=== PATIENT | male | born 1960 | race Caucasian/White ===

== ENCOUNTER → 2018-10-02 09:32 | Outpatient (CLI) | payer MEDICAID, SELFPAY ==
[2018-10-02 10:29] LABS: Influenza A and B by PCR Rapid Negative (Negative)
== END ==
PROVIDERS: PCP Family Medicine; Visit Provider Physician Assistant
DX: R05 Cough (principal)
CPT/HCPCS: 87400

== ENCOUNTER → 2018-12-04 10:06 | Outpatient (CLI) | payer MEDICAID, SELFPAY ==
[2018-12-04 10:23] LABS: Bacteria Urine None Seen; RBC Urine None Seen (0-5/HPF); WBC Urine None Seen (0-5/HPF)
[2018-12-04 10:46] LABS: Appearance Urine UA CLEAR; Bilirubin Urine UA NEGATIVE (NEGATIVE); Color Urine UA YELLOW; Glucose Urine UA NEGATIVE (Negative); Ketones Urine UA NEGATIVE (NEGATIVE); Leukocyte Esterase Urine UA NEGATIVE (NEGATIVE); Nitrite Urine UA NEGATIVE (Negative); Occult Blood Urine UA NEGATIVE (Negative); Protein Urine UA NEGATIVE (Negative); Urobilinogen Urine UA 0.2 E.U./dL (0.2); pH Urine UA 6.5 (4.5-8.0)
[2018-12-04 10:58] LABS: Urine Comments Microscopic Normal
[2018-12-04 10:59] LABS: Alanine Aminotransferase 43 IU/L (21-72); Albumin 4.9 g/dL (3.5-5.0); Albumin Globulin Ratio 1.8 (1.0-2.8); Alkaline Phosphatase 95 U/L (38-126); Aspartate Aminotransferase 31 IU/L (17-59); BUN Creatinine Ratio 18.8 (6-22); Bilirubin Total 0.7 mg/dL (0.2-1.3); Blood Urea Nitrogen 15 mg/dL (9-20); Calcium 9.6 mg/dL (8.4-10.2); Carbon Dioxide 23 mmol/L (22-32); Chloride 105 mmol/L (98-107); Cholesterol 151 mg/dL (140-199); Culture Indicated Urine Cult Not Indicated; Estimated Glomerular Filt Rate > 60.0 mL/min (>60); Globulin 2.8 g/dL (1.7-4.1); Glucose 104 mg/dL (70-100); HDL Cholesterol 50 mg/dL (40-60); HEMOLYSIS < 15 (0-50); LDL Cholesterol Calculated 87 mg/dL (<100); Potassium 4.1 mmol/L (3.4-5.1); Sodium 138 mmol/L (137-145); Total Protein 7.7 g/dL (6.3-8.2); Triglycerides 69 mg/dL (35-150)
[2018-12-04 11:26] LABS: Prostate Specific Antigen 0.982 ng/mL (0.10-4.00)
[2018-12-04 12:18] LABS: Thyroid Stimulating Hormone 0.71 uIU/mL (0.47-4.68)
== END ==
PROVIDERS: PCP Family Medicine; Visit Provider Family Medicine
DX: Z51.81 Encounter for therapeutic drug level monitoring (principal); Z00.00 Encounter for general adult medical examination without abnormal findings
CPT/HCPCS: 36415; 80053; 80061; 81001; 84153; 84443

== ENCOUNTER → 2019-09-27 09:09 | Outpatient (CLI) | payer MEDICAID, SELFPAY ==
--- NOTE | 2019-09-27 09:10 | DI.RAD.S_ITS ---
PROCEDURE: XR LUMBAR SPINE 2-3V INDICATIONS: Back pain TECHNIQUE: 3 views of the lumbar spine were acquired. COMPARISON: None. FINDINGS: Bones: 5 [id number] vertebrae are present. Mild levoscoliosis centered at the L3 level. Trace multilevel retrolisthesis. Mild multilevel disc degeneration, most notably at the L5-S1 level. Moderate L4-L5 and L5-S1 facet joint arthropathy. No vertebral body compression fractures. No suspicious bony lesions. Soft tissues: Overlying bowel gas pattern is normal. No suspicious soft tissue calcifications. IMPRESSION: Multilevel spondylosis. Dictated by: Raj MENDOZA Interpreted: Peyton Trujillo MD on 09/27/2019 at 9:22 Approved by: Peyton Trujillo M.D. on 09/27/2019 at 16:47
== END ==
PROVIDERS: PCP Family Medicine; Referring Provider Family Medicine; Visit Provider Family Medicine
DX: M54.5 Low back pain (principal); M47.816 Spondylosis without myelopathy or radiculopathy, lumbar region; M47.817 Spondylosis without myelopathy or radiculopathy, lumbosacral region; G89.29 Other chronic pain
CPT/HCPCS: 72100

== ENCOUNTER → 2020-05-21 12:37 | Outpatient (CLI) | payer MEDICAID, SELFPAY ==
[2020-05-21 14:02] LABS: Add Manual Diff / Slide Review NO; Basophils Absolute Auto 0 /uL (0-100); Basophils Percent Auto 0.7 % (0-2); Eosinophils Absolute Auto 100 /uL (0-450); Eosinophils Percent Auto 2.2 % (2-4); Hematocrit 44.1 % (41-53); Hemoglobin 14.9 g/dL (13.5-17.5); Lymphocytes Absolute Auto 1400 /uL (1100-4500); Lymphocytes Percent Auto 25.7 % (25-40); Mean Corpuscular HGB Conc 33.8 % (30-36); Mean Corpuscular Hemoglobin 29.8 PG (26-34); Mean Corpuscular Volume 88.2 fL (80-100); Monocytes Absolute Auto 400 /uL (0-900); Monocytes Percent Auto 7.2 % (3-14); Neutrophils Absolute Auto 3500 /uL (1500-7000); Neutrophils Percent Auto 64.2 % (50-75); Platelet Count 179 X10^3/uL (150-400); White Blood Cell Count 5.4 X10^3/uL (4.5-11.0)
[2020-05-21 14:55] LABS: Alanine Aminotransferase 36 IU/L (<50); Albumin 4.2 g/dL (3.5-5.0); Albumin Globulin Ratio 1.4 (1.0-2.8); Alkaline Phosphatase 73 U/L (38-126); Aspartate Aminotransferase 32 IU/L (17-59); BUN Creatinine Ratio 16.5 (6-22); Bilirubin Total 0.4 mg/dL (0.2-1.3); Blood Urea Nitrogen 14 mg/dL (9-20); Carbon Dioxide 28 mmol/L (22-32); Chloride 108 mmol/L (98-107); Cholesterol 161 mg/dL (140-199); Estimated Glomerular Filt Rate > 60.0 mL/min (>60); Glucose 90 mg/dL (70-100); HDL Cholesterol 43 mg/dL (40-60); HEMOLYSIS < 15 (0-50); LDL Cholesterol Calculated 90 mg/dL (<100); Potassium 3.9 mmol/L (3.4-5.1); Sodium 140 mmol/L (137-145); Total Protein 7.2 g/dL (6.3-8.2); Triglycerides 139 mg/dL (35-150)
[2020-05-21 15:00] LABS: Free T4, Direct Thyroxine 0.85 ng/dL (0.78-2.19)
[2020-05-21 15:14] LABS: Thyroid Stimulating Hormone 1.44 uIU/mL (0.47-4.68)
[2020-05-21 15:18] LABS: Prostate Specific Antigen 1.19 ng/mL (0.10-4.00)
== END ==
PROVIDERS: Family Provider Family Medicine; PCP Family Medicine; Referring Provider Family Medicine; Visit Provider Family Medicine
DX: I10 Essential (primary) hypertension (principal)
CPT/HCPCS: 36415; 80053; 80061; 84153; 84439; 84443; 85025

== ENCOUNTER 2020-08-05 15:15 | Outpatient (RCR) | payer MEDICAID, SELFPAY ==
--- NOTE | 2020-06-25 09:05 | PT.OIE ---
Current Diagnoses Other chronic pain (06/24/20) Chronic pain syndrome (06/24/20) Pain in right knee (06/24/20) Low back pain (06/24/20) Weakness (06/24/20) Past Medical History (Last Updated 05/15/20 @ 21:17 by Darnell Hennessy DO) Ankle pain (1993) Cervical spine disease (~1999) Chronic back pain (1993) Foot pain (1993) Fractures (~2004) Hearing loss (~2000) Hemorrhoid (~1969) Hypertension Migraines (~1999) Neck pain (Unknown) Tinnitus (~2000) Vision disorder Well adult Past Surgical History (Last Reviewed 01/10/20 @ 07:06 by JAKE Puente) History of surgery on arm (12/2015) Status post appendectomy Status post discectomy Status post discectomy Visit Care Team Role Provider Type Darnell Hennessy DO Attending Provider Physician Family Provider Primary Care Provider Referring Provider Specialty: Family Practice Address: [address] [place] [address] Email: [email or web address] Physical Therapy Initial Evaluation PT-OP-A Visit Information Start: 06/18/20 08:05 Freq: Status: Active Protocol: Document 06/24/20 10:33 SAK (Rec: 06/24/20 11:08 [facility] [id number]) Out-Patient Physical Therapy Visit Information Visit Information Visit Type Initial Evaluation Visit Start Time 10:34 PT-OP-B Current Condition Start: 06/18/20 08:05 Freq: Status: Active Protocol: Document 06/24/20 10:33 SAK (Rec: 06/24/20 11:08 [facility] [id number]) Current Condition History of Current Condition Onset Date 10 yrs ago Current Complaints back pain History of Current Condition Back pain worsening over time since 1994. Reports aquatic exercise has been the best for him in past, seen by this PT. Due to pandemic no aquatic therapy at is time, but pool is open. Receptive to land- based PT as well. Has to cancel PT appointments until after the first of the week. Numbness in thighs with prolonged sitting no falls. Taking Hydrocodone 5x/day, goal is to decrease pain sufficient to be able to wean off Hydrocodone. Reports in the am, sometimes can't walk or move due to CRPS . Joints feel dehydrated. Used to walk 5-7 miles per day . Prior Treatments and Tests crushed ankles '95 after falling off room. L4 L5 S1 laminectomy and discectomy Pain clinic [id number]. cervical discectomy and fusion PT-OP-C Subjective Start: 06/18/20 08:05 Freq: Status: Active Protocol: Document 06/24/20 10:33 SAK (Rec: 06/25/20 08:52 SAK [id number]) OP-PT Pain Assessment Pain Assessment Grid Paper Pain Assessment Grid Completed Yes Location lumbar spine Intensity 6 Description Aching,Burning,Chronic, Pressure Frequency Frequent Pain Aggravating Factors Position,Activity,Standing, Sitting,Walking Home Pain Medication Use Pain Medications Used Yes Home Pain Medication Frequency 5x/day PT-OP-G Mobility & Gait Start: 06/18/20 08:05 Freq: Status: Active Protocol: Document 06/24/20 10:33 SAK (Rec: 06/25/20 08:52 [facility] [id number]) OP Gait Assessment Gait Gait Assistance Required: Independent Gait Deviations General Gait Pattern Antalgic,Decreased Feet Clearance Factors Limiting Gait Function Factors Limiting Gait Function Pain PT-OP-J Posture/Palpation/Skin Start: 06/18/20 08:05 Freq: Status: Active Protocol: Document 06/24/20 10:33 SAK (Rec: 06/25/20 08:52 [facility] [id number]) Posture Evaluation Position Standing Head/C-Spine Posture Forward Head L-Spine Posture Increased Lordosis Shoulder Posture (L) Rounded,(R) Rounded Scapula Posture (L) Protracted,(R) Protracted Hip Posture (L) Externally Rotated,(R) Externally Rotated Ankle/Foot Posture (L) Forefoot Eversion,(R) Forefoot Eversion PT-OP-K Range of Motion Start: 06/18/20 08:05 Freq: Status: Active Protocol: Document 06/24/20 10:33 SAK (Rec: 06/25/20 08:52 [facility] [id number]) Lumbar Spine Range of Motion Lumbar Spine Active ROM Limitations Pain Comments moderate decrease in all motions Hip Goniometric Range of Motion Hip lily Hip ROM WFL No Testing Position Supine Flexion w/Knee Flexed 105 Straight Leg Raise 80 Extension 0 Internal Rotation 15 External Rotation 45 PT-OP-L Special Tests Start: 06/18/20 08:05 Freq: Status: Active Protocol: Document 06/24/20 10:33 SAK (Rec: 06/25/20 08:52 SAK [id number]) Special Tests Lumbar Spine Special Tests Straight Leg Raise Test Results negative Manual Traction Test Results positive for decrease pain PT-OP-M Strength Start: 06/18/20 08:05 Freq: Status: Active Protocol: Document 06/24/20 10:33 SAK (Rec: 06/25/20 08:52 SAK [id number]) Trunk Strength Trunk Manual Muscle Testing Flexion 3+ Fair+ Extension 3+ Fair+ Core Stabilization poor Comments painful Knee Strength Knee Manual Muscle Testing lily Flexion (S2) 4+ Good+ Extension (L3) 4+ Good+ Ankle/Foot Strength Ankle and Foot Manual Muscle Testing lily Dorsiflexion (L4) 4 Good Plantarflexion (S1) 4 Good PT-OP-Q Treatments Start: 06/18/20 08:05 Freq: Status: Active Protocol: Document 06/24/20 10:33 SAK (Rec: 06/25/20 08:52 [facility] [id number]) Self-Care/Home Management Treatment Education Patient Education Home Exercise Program PT-OP-R Modalities Start: 06/18/20 08:05 Freq: Status: Active Protocol: Document 06/24/20 10:33 SAK (Rec: 06/25/20 08:52 [facility] [id number]) Hot Pack/Cold Pack Treatment Hot Pack Location lumbar spine Patient Position Hooklying Patient Tolerance Good PT-OP-T Assessment and Plan Start: 06/18/20 08:05 Freq: Status: Active Protocol: Document 06/24/20 10:33 SAK (Rec: 06/24/20 15:41 [facility] [id number]) Physical Therapy Assessment Rehab Potential Rehabilitation Potential Good Evaluation Complexity Number of Personal Factors/Comorbidities 1-2 Number of Body Systems Impaired 3 Clinical Presentation at Evaluation Evolving Impairments Impairments Activity Tolerance,Pain, Strength Other Concerns Barriers to Rehabilitation chronicity of pain Goals Four Impairment weakness lily LE's and core Prison Goal (LTG) Patient will be independent with HEP and aquatic exercise program, and demonstrate at least 4+/5 muscle strength bilateral LE's and core LTG Duration 09/22/20 Two Impairment pain lumbar spine with radicular symptoms 6/10 on pain scale Desktop Specialist Goal (LTG) Patient able to tolerate usual activities of daily living with pain no greeater than 2/ 10 LTG Duration 09/22/20 One Impairment activity intolerance: sitting 5 min, standing/walking 5 min Prison Goal (LTG) Patient will be able to sit for 1 hour and stand/walk for 30 min without an increase in pain LTG Duration 09/22/20 Assessment Summary Assessment Patient presents with 10 year history of worsening LBP limiting his activity tolerance and function on a daily basis. He has a history of bilateral ankle fractures and his LBP came on soon after . History of laminectomy and discectomy L4-S1. He is hoping to decrease his pain, improve his activity tolerance , and be able to wean off Hydrocodone. He has benefited from aquatic exercise in the past, unfortunately our Aquatic PT program is on hold at this time due to Covid 19; the community pool is open but the current plan is aquatic PT won't restart until Phase 3 of [facility] re- opening. Patient's symptoms are decreased with manual traction and I feel the buoyancy support of the water would be very beneficial for Cale to allow for improved mobility and ability to strengthen with less pain and stress to his spine. In the short term feel we can do land -based PT with emphasis on core strengthening, as well as use of manual and possible mechanical traction, manual techniques, and modalities for pain management. As soon as possible would like to see him utilize aquatic exercise for his rehab. Due to insurance issues (currently self-pay) patient may not be able to attend physical therapy appointments. He will be gone visiting his mother until after the first of the year. Physical Therapy Plan Frequency and Duration Frequency of Treatment 2x/Week Duration of Treatment 12 wks Plan of Care Start Date 06/24/20 Plan of Care End Date 09/22/20 Therapeutic Interventions Therapeutic Interventions Aquatic Therapy Next Visit Focus/Plan Next Note Type Treatment Note Next Visit Plan Review HEP, progress ther ex as indicated with emphasis on core strengthening. Manual traction, modalities including moist heat and IFES to decrease pain. Instruct in recommended aquatic exercises if patient able to go to pool on own. Aquatic therapy once [facility] moves to Phase 3 of reopening.
--- NOTE | 2020-06-25 09:05 | PT.OPPOC ---
Physical, Occupational & Speech Therapy At [facility] Current Diagnoses Other chronic pain (06/24/20) Chronic pain syndrome (06/24/20) Pain in right knee (06/24/20) Low back pain (06/24/20) Weakness (06/24/20) Visit Care Team Role Provider Type Darnell Hennessy DO Attending Provider Physician Family Provider Primary Care Provider Referring Provider Specialty: Family Practice Address: [address] [place] [address], [place] Email: [email or web address] Plan Of Care PT-OP-T Assessment and Plan Start: 06/18/20 08:05 Freq: Status: Active Protocol: Document 06/24/20 10:33 [facility] (Rec: 06/24/20 15:41 [facility] [id number]) Physical Therapy Assessment Rehab Potential Rehabilitation Potential Good Evaluation Complexity Number of Personal Factors/Comorbidities 1-2 Number of Body Systems Impaired 3 Clinical Presentation at Evaluation Evolving Impairments Impairments Activity Tolerance,Pain, Strength Other Concerns Barriers to Rehabilitation chronicity of pain Goals Four Impairment weakness lily LE's and core Jail Goal (LTG) Patient will be independent with HEP and aquatic exercise program, and demonstrate at least 4+/5 muscle strength bilateral LE's and core LTG Duration 09/22/20 Two Impairment pain lumbar spine with radicular symptoms 6/10 on pain scale Jail Goal (LTG) Patient able to tolerate usual activities of daily living with pain no greeater than 2/ 10 LTG Duration 09/22/20 One Impairment activity intolerance: sitting 5 min, standing/walking 5 min Harbor Department Manager Goal (LTG) Patient will be able to sit for 1 hour and stand/walk for 30 min without an increase in pain LTG Duration 09/22/20 Assessment Summary Assessment Patient presents with 10 year history of worsening LBP limiting his activity tolerance and function on a daily basis. He has a history of bilateral ankle fractures and his LBP came on soon after . History of laminectomy and discectomy L4-S1. He is hoping to decrease his pain, improve his activity tolerance , and be able to wean off Hydrocodone. He has benefited from aquatic exercise in the past, unfortunately our Aquatic PT program is on hold at this time due to Covid 19; the community pool is open but the current plan is aquatic PT won't restart until Phase 3 of [facility] re- opening. Patient's symptoms are decreased with manual traction and I feel the buoyancy support of the water would be very beneficial for Cale to allow for improved mobility and ability to strengthen with less pain and stress to his spine. In the short term feel we can do land -based PT with emphasis on core strengthening, as well as use of manual and possible mechanical traction, manual techniques, and modalities for pain management. As soon as possible would like to see him utilize aquatic exercise for his rehab. Due to insurance issues (currently self-pay) patient may not be able to attend physical therapy appointments. He will be gone visiting his mother until after the first of the year. Physical Therapy Plan Frequency and Duration Frequency of Treatment 2x/Week Duration of Treatment 12 wks Plan of Care Start Date 06/24/20 Plan of Care End Date 09/22/20 Therapeutic Interventions Therapeutic Interventions Aquatic Therapy Next Visit Focus/Plan Next Note Type Treatment Note Next Visit Plan Review HEP, progress ther ex as indicated with emphasis on core strengthening. Manual traction, modalities including moist heat and IFES to decrease pain. Instruct in recommended aquatic exercises if patient able to go to pool on own. Aquatic therapy once [facility] moves to Phase 3 of reopening. Plan of Care Dates Plan of Care Start Date 06/24/20 Plan of Care End Date 09/22/20 Electronically Signed by: Ilene Mckeon, PT 06/25/20 0905 Please Sign and Return: I have reviewed this Plan of Care and certify that the skilled therapy services above are required to meet the patient?s needs. Physician Signature Date Printed Name and Credentials Clinical Instructor Signature Printed Name and Credentials
--- NOTE | 2020-07-29 14:46 | PT-OP ANOTE ---
cancelled due to cold symptoms
--- NOTE | 2020-08-05 16:14 | PT.OTN ---
Current Diagnoses Other chronic pain (08/05/20) Chronic pain syndrome (08/05/20) Pain in right knee (08/05/20) Low back pain (08/05/20) Weakness (08/05/20) Physical Therapy Treatment Note PT-OP-A Visit Information Start: 06/18/20 08:05 Freq: Status: Active Protocol: Document 08/05/20 15:17 SAK (Rec: 08/05/20 16:13 SAK [id number]) Out-Patient Physical Therapy Visit Information Visit Information Visit Type Treatment Note Visit Note patient 8 min late Visit Start Time 15:23 Visit Stop Time 16:05 Total Visit Minutes 42 Visit Number 2 Evaluation Information Evaluation Date 06/24/20 PT-OP-B Current Condition Start: 06/18/20 08:05 Freq: Status: Active Protocol: Document 06/24/20 10:33 SAK (Rec: 06/24/20 11:08 SAK [id number]) Current Condition History of Current Condition Onset Date 10 yrs ago Current Complaints back pain History of Current Condition Back pain worsening over time since 1994. Reports aquatic exercise has been the best for him in past, seen by this PT. Due to pandemic no aquatic therapy at is time, but pool is open. Receptive to land- based PT as well. Has to cancel PT appointments until after the first of the year. Numbness in thighs with prolonged sitting no falls. Taking Hydrocodone 5x/day, goal is to decrease pain sufficient to be able to wean off Hydrocodone. Reports in the am, sometimes can't walk or move due to CRPS . Joints feel dehydrated. Used to walk 5-7 miles per day . Prior Treatments and Tests crushed ankles '95 after falling off roof. L4 L5 S1 laminectomy and discectomy Pain clinic [phone]. cervical discectomy and fusion PT-OP-C Subjective Start: 06/18/20 08:05 Freq: Status: Active Protocol: Document 08/05/20 15:17 SAK (Rec: 08/05/20 16:13 SAK [id number]) OP-PT Subjective Patient Comments Patient Comments Reports has started doing aquatic exercise and swimming, pain decreased. Has also started increase in walking to several miles per day carrying 12-15 pounds. States his core feels weak. Also meditating and praying. PT-OP-G Mobility & Gait Start: 06/18/20 08:05 Freq: Status: Active Protocol: Document 06/24/20 10:33 SAK (Rec: 06/25/20 08:52 [facility] [id number]) OP Gait Assessment Gait Gait Assistance Required: Independent Gait Deviations General Gait Pattern Antalgic,Decreased Feet Clearance Factors Limiting Gait Function Factors Limiting Gait Function Pain PT-OP-J Posture/Palpation/Skin Start: 06/18/20 08:05 Freq: Status: Active Protocol: Document 06/24/20 10:33 SAK (Rec: 06/25/20 08:52 [facility] [id number]) Posture Evaluation Position Standing Head/C-Spine Posture Forward Head L-Spine Posture Increased Lordosis Shoulder Posture (L) Rounded,(R) Rounded Scapula Posture (L) Protracted,(R) Protracted Hip Posture (L) Externally Rotated,(R) Externally Rotated Ankle/Foot Posture (L) Forefoot Eversion,(R) Forefoot Eversion PT-OP-K Range of Motion Start: 06/18/20 08:05 Freq: Status: Active Protocol: Document 06/24/20 10:33 SAK (Rec: 06/25/20 08:52 [facility] [id number]) Lumbar Spine Range of Motion Lumbar Spine Active ROM Limitations Pain Comments moderate decrease in all motions Hip Goniometric Range of Motion Hip lily Hip ROM WFL No Testing Position Supine Flexion w/Knee Flexed 105 Straight Leg Raise 80 Extension 0 Internal Rotation 15 External Rotation 45 PT-OP-L Special Tests Start: 06/18/20 08:05 Freq: Status: Active Protocol: Document 06/24/20 10:33 SAK (Rec: 06/25/20 08:52 [facility] [id number]) Special Tests Lumbar Spine Special Tests Straight Leg Raise Test Results negative Manual Traction Test Results positive for decrease pain PT-OP-M Strength Start: 06/18/20 08:05 Freq: Status: Active Protocol: Document 06/24/20 10:33 SAK (Rec: 06/25/20 08:52 SAK [id number]) Trunk Strength Trunk Manual Muscle Testing Flexion 3+ Fair+ Extension 3+ Fair+ Core Stabilization poor Comments painful Knee Strength Knee Manual Muscle Testing lily Flexion (S2) 4+ Good+ Extension (L3) 4+ Good+ Ankle/Foot Strength Ankle and Foot Manual Muscle Testing lily Dorsiflexion (L4) 4 Good Plantarflexion (S1) 4 Good PT-OP-Q Treatments Start: 06/18/20 08:05 Freq: Status: Active Protocol: Document 08/05/20 15:17 [facility] (Rec: 08/05/20 16:13 [facility] [id number]) Cardio Equipment Recumbent Stepper (Sci-Fit) Duration (Minutes) 10 Resistance 2.0 Seat Position 11 Other cues for LE alignment Therapeutic Exercises Supine Exercises postural isometric Reps/Minutes 10x Comments knees bent, thin pillow under head SKTC Side bilateral Reps/Minutes 30 x 2 ball squeeze Equipment Used green ball Reps/Minutes 10x TrA Reps/Minutes 10x segmental bridge Reps/Minutes 10x Standing Exercises wall posture Reps/Minutes 5x Comments c/o right knee and hip discomfort Manual Therapy Treatment Manual Traction Lumbar Body Position Hooklying Reps/Duration 10 min Comments intermittant 2 min holds, 10 sec release Self-Care/Home Management Treatment Education Patient Education Home Exercise Program Other Education issued new copy of HEP PT-OP-R Modalities Start: 06/18/20 08:05 Freq: Status: Active Protocol: Document 06/24/20 10:33 [facility] (Rec: 06/25/20 08:52 [facility] [id number]) Hot Pack/Cold Pack Treatment Hot Pack Location lumbar spine Patient Position Hooklying Patient Tolerance Good PT-OP-T Assessment and Plan Start: 06/18/20 08:05 Freq: Status: Active Protocol: Document 08/05/20 15:17 [facility] (Rec: 08/05/20 16:13 [facility] [id number]) Physical Therapy Assessment Impairments Impairments Activity Tolerance,Pain, Strength Other Concerns Barriers to Rehabilitation chronicity of pain Goals Four Impairment weakness lily LE's and core Inspector Electromechanical Goal (LTG) Patient will be independent with HEP and aquatic exercise program, and demonstrate at least 4+/5 muscle strength bilateral LE's and core LTG Duration 09/22/20 Two Impairment pain lumbar spine with radicular symptoms 6/10 on pain scale Inspector Electromechanical Goal (LTG) Patient able to tolerate usual activities of daily living with pain no greeater than 2/ 10 LTG Duration 09/22/20 One Impairment activity intolerance: sitting 5 min, standing/walking 5 min Shelter Goal (LTG) Patient will be able to sit for 1 hour and stand/walk for 30 min without an increase in pain LTG Duration 09/22/20 Progress Towards Goals Progress Towards Goals Progressing Toward Goals Assessment Summary Assessment Reports decreasing pain since starting aquatic exercise and swimming, increasing tolerance for walking. Reported excellent relief of pressure and pain with manual traction. Patient refused ice or heat at end of treatment. Physical Therapy Plan Frequency and Duration Frequency of Treatment 2x/Week Duration of Treatment 12 wks Plan of Care Start Date 06/24/20 Plan of Care End Date 09/22/20 Therapeutic Interventions Therapeutic Interventions Aquatic Therapy,Home Exercise Program,Joint Mobilizations, Manual Therapy,Neuromuscular Re-education,Patient/Caregiver Education,Self-Care/Home Management,Soft Tissue Mobilization,Taping, Therapeutic Activities, Therapeutic Exercises Next Visit Focus/Plan Next Note Type Treatment Note Next Visit Plan Continue core strengthening, flexibility, trial mechanical traction, modalities PRN.
--- NOTE | 2020-08-07 15:43 | PT-OP ANOTE ---
CANCELLED DUE TO REPORTED GROIN INJURY
--- NOTE | 2020-08-18 16:36 | PT-OP ANOTE ---
Hold PT until patient returns from vacation in September
--- NOTE | 2020-11-10 10:50 | PT.OPDS ---
Current Diagnoses Other chronic pain (08/05/20) Chronic pain syndrome (08/05/20) Pain in right knee (08/05/20) Low back pain (08/05/20) Weakness (08/05/20) Visit Care Team Role Provider Type Darnell Hennessy DO Attending Provider Physician Family Provider Primary Care Provider Referring Provider Specialty: [facility] Practice Address: [address] [place] [address], [facility] Email: [email or web address] Visit Number Visit Number 2 Discharge Summary PT-OP-B Current Condition Start: 06/18/20 08:05 Freq: Status: Active Protocol: Document 06/24/20 10:33 SAK (Rec: 06/24/20 11:08 SAK [id number]) Current Condition History of Current Condition Onset Date 10 yrs ago Current Complaints back pain History of Current Condition Back pain worsening over time since 1994. Reports aquatic exercise has been the best for him in past, seen by this PT. Due to pandemic no aquatic therapy at is time, but pool is open. Receptive to land- based PT as well. Has to cancel PT appointments until after the first of the year. Numbness in thighs with prolonged sitting no falls. Taking Hydrocodone 5x/day, goal is to decrease pain sufficient to be able to wean off Hydrocodone. Reports in the am, sometimes can't walk or move due to CRPS . Joints feel dehydrated. Used to walk 5-7 miles per day . Prior Treatments and Tests crushed ankles '95 after falling off roof. L4 L5 S1 laminectomy and discectomy Pain clinic [id number]. cervical discectomy and fusion PT-OP-C Subjective Start: 06/18/20 08:05 Freq: Status: Active Protocol: Document 08/05/20 15:17 SAK (Rec: 08/05/20 16:13 SAK [id number]) OP-PT Subjective Patient Comments Patient Comments Reports has started doing aquatic exercise and swimming, pain decreased. Has also started increase in walking to several miles per day carrying 12-15 pounds. States his core feels weak. Also meditating and praying. PT-OP-G Mobility & Gait Start: 06/18/20 08:05 Freq: Status: Active Protocol: Document 06/24/20 10:33 SAK (Rec: 06/25/20 08:52 [facility] [id number]) OP Gait Assessment Gait Gait Assistance Required: Independent Gait Deviations General Gait Pattern Antalgic,Decreased Feet Clearance Factors Limiting Gait Function Factors Limiting Gait Function Pain PT-OP-J Posture/Palpation/Skin Start: 06/18/20 08:05 Freq: Status: Active Protocol: Document 06/24/20 10:33 SAK (Rec: 06/25/20 08:52 [facility] [id number]) Posture Evaluation Position Standing Head/C-Spine Posture Forward Head L-Spine Posture Increased Lordosis Shoulder Posture (L) Rounded,(R) Rounded Scapula Posture (L) Protracted,(R) Protracted Hip Posture (L) Externally Rotated,(R) Externally Rotated Ankle/Foot Posture (L) Forefoot Eversion,(R) Forefoot Eversion PT-OP-K Range of Motion Start: 06/18/20 08:05 Freq: Status: Active Protocol: Document 06/24/20 10:33 SAK (Rec: 06/25/20 08:52 [facility] [id number]) Lumbar Spine Range of Motion Lumbar Spine Active ROM Limitations Pain Comments moderate decrease in all motions Hip Goniometric Range of Motion Hip lily Hip ROM WFL No Testing Position Supine Flexion w/Knee Flexed 105 Straight Leg Raise 80 Extension 0 Internal Rotation 15 External Rotation 45 PT-OP-L Special Tests Start: 06/18/20 08:05 Freq: Status: Active Protocol: Document 06/24/20 10:33 SAK (Rec: 06/25/20 08:52 [facility] [id number]) Special Tests Lumbar Spine Special Tests Straight Leg Raise Test Results negative Manual Traction Test Results positive for decrease pain PT-OP-M Strength Start: 06/18/20 08:05 Freq: Status: Active Protocol: Document 06/24/20 10:33 SAK (Rec: 06/25/20 08:52 [facility] [id number]) Trunk Strength Trunk Manual Muscle Testing Flexion 3+ Fair+ Extension 3+ Fair+ Core Stabilization poor Comments painful Knee Strength Knee Manual Muscle Testing lily Flexion (S2) 4+ Good+ Extension (L3) 4+ Good+ Ankle/Foot Strength Ankle and Foot Manual Muscle Testing lily Dorsiflexion (L4) 4 Good Plantarflexion (S1) 4 Good PT-OP-T Assessment and Plan Start: 06/18/20 08:05 Freq: Status: Active Protocol: Document 11/10/20 10:49 IVAN (Rec: 11/10/20 10:50 IVAN [id number]) Physical Therapy Plan Discharge Physical Therapy Discharge Reasons No Longer Attending PT
== END 2020-11-12 14:40 | disposition home or self-care (01) ==
LOC: PHYS 15:15
PROVIDERS: Family Provider Family Medicine; PCP Family Medicine; Referring Provider Family Medicine; Visit Provider Family Medicine
DX: G89.4 Chronic pain syndrome (principal); M54.5 Low back pain; M25.561 Pain in right knee; R53.1 Weakness
CPT/HCPCS: 97010; 97110; 97140; 97162; 97535

== ENCOUNTER → 2021-02-10 08:44 | Outpatient (CLI) | payer MEDICAID, SELFPAY ==
--- NOTE | 2021-02-10 08:52 | DI.RAD.S_ITS ---
PROCEDURE: XR LUMBAR SPINE 2-3V INDICATIONS: chronic low back pain TECHNIQUE: 3 views of the lumbar spine were acquired. COMPARISON: [facility], CR, XR LUMBAR SPINE 2-3V, 09/27/2019, 9:06. FINDINGS: Bones: 5 [id number] vertebrae are present. There is normal bony alignment. No vertebral body compression fractures. No suspicious bony lesions. Degenerative disc disease is [id number]-[id number] along the lumbosacral spine without subluxation. No spine abnormality appears acute. Soft tissues: Overlying bowel gas pattern is normal. No suspicious soft tissue calcifications. IMPRESSION: Chronic yyiq-sr-kuonqjkq degenerative disc disease, facet osteoarthritis is mild at L3-4, moderate at L4-5 and L5-S1. No prior fracture found. Dictated by: Valdemar Main M.D. on 02/10/2021 at 15:14 Approved by: Valdemar Main M.D. on 02/10/2021 at 15:15
[2021-02-10 09:23] LABS: UR Morphine/Opiate cutoff 300 Negative (Negative); Ur Creatinine Normal (Normal); Ur Specific Gravity Normal (Normal); Urine Amphetamines Negative (Negative); Urine Barbiturates Negative (Negative); Urine Benzodiazepines Negative (Negative); Urine Cocaine Negative (Negative); Urine MDMA Negative (Negative); Urine Methadone Negative (Negative); Urine Methamphetamines Negative (Negative); Urine Oxycodone Negative (Negative); Urine Phencyclidine Negative (Negative); Urine Tetrahydrocannabinol Negative (Negative); Urine Tricyclic Antidepressant Negative (Negative); Urine pH Normal (Normal)
[2021-02-10 09:58] LABS: Alanine Aminotransferase 23 IU/L (<50); Albumin 4.6 g/dL (3.5-5.0); Albumin Globulin Ratio 1.6 (1.0-2.8); Alkaline Phosphatase 86 U/L (38-126); Aspartate Aminotransferase 22 IU/L (17-59); BUN Creatinine Ratio 14.1 (6-22); Bilirubin Total 0.5 mg/dL (0.2-1.3); Blood Urea Nitrogen 11 mg/dL (9-20); Carbon Dioxide 23 mmol/L (22-32); Chloride 106 mmol/L (98-107); Estimated Glomerular Filt Rate > 60.0 mL/min (>60); Globulin 2.8 g/dL (1.7-4.1); Glucose 97 mg/dL (80-110); HEMOLYSIS < 15 (0-50); Potassium 4.5 mmol/L (3.4-5.1); Sodium 140 mmol/L (137-145); Total Protein 7.4 g/dL (6.3-8.2)
== END ==
LOC: LAB 08:46 → RAD 08:51
PROVIDERS: Family Provider Family Medicine; PCP Family Medicine; Referring Provider Family Medicine; Visit Provider Family Medicine
DX: M54.5 Low back pain (principal); M51.36 Other intervertebral disc degeneration, lumbar region; M47.816 Spondylosis without myelopathy or radiculopathy, lumbar region; M47.817 Spondylosis without myelopathy or radiculopathy, lumbosacral region; I10 Essential (primary) hypertension; G89.29 Other chronic pain; Z79.891 Long term (current) use of opiate analgesic
CPT/HCPCS: 36415; 72100; 80053; 80305

== ENCOUNTER 2021-08-27 05:05 | Emergency (ER) | payer MEDICAID, SELFPAY ==
[2021-08-27 05:12] VITALS: BP 133/90; PULSE 66; RESP 18; TEMP 36.6; O2SAT 99; BMI 32.3
--- NOTE | 2021-08-27 05:40 | ED_ITS ---
HPI - Back Pain/Injury General Chief Complaint: Back Pain/Injury Stated Complaint: hurt back due to injury Time Seen by Provider: 08/27/21 05:39 Source: patient Mode of arrival: Ambulatory Limitations: no limitations History of Present Illness HPI Narrative: This is a 61-year-old male chronic low back pain with prior history of cervical as well as lumbar surgery. Patient states he follows with his primary care amanda islas and does have a pain contract. He typically takes hydrocodone for pain. Yesterday he picked up a box that was over 20 lb which is his normal weight restriction. He did not realize how heavy it was carried inside the house. He did not really notice much pain but then slowly had increasing pain through the day and into the evening. Patient states he is most comfortable lying on his back with his knees flexed. Movement does make it worse. He tried his home pain medications with minimal improvement. He denies any new numbness, tingling or weakness. He has some mild radiation into the right groin and upper thigh. He states he does sometimes get paresthesias in his upper thighs but does not have any currently. No saddle anesthesia. No fecal or urine incontinence. He denies fevers or chills. He states this feels similar to prior flares. Patient denies allergies. He has an appointment in the next week with his primary care for follow-up. We did discuss that he needs to update his primary care physician that he has received medications that are controlled substances secondary to his pain contract. Related Data Previous Rx's Medication Instructions Recorded Back Brace #1 ea 09/08/18 docusate sodium 100 mg capsule 100 mg PO QID PRN #360 cap 09/14/19 diphenhydramine HCl 25 mg tablet 25 mg PO TID #90 tab 10/15/20 diclofenac sodium 1 % topical gel 2 g TOPICAL QID #100 g 11/24/20 (Voltaren) Disabled Parking Permit #1 ea 02/10/21 Disabled Plates Permit #1 ea 02/10/21 lisinopril 10 mg tablet 10 mg PO DAILY #90 tab 06/25/21 pseudoephedrine HCl 30 mg tablet 60 mg PO Q4-6H PRN #30 tab 07/28/21 (Sudafed) mupirocin 2 % topical ointment See Rx Instructions .ROUTE 08/19/21 .COMPLEX #22 gram hydrocodone 5 mg-acetaminophen 325 See Rx Instructions PO TID PRN 08/21/21 mg tablet #150 tab diazepam 10 mg tablet (Valium) 10 mg PO TID PRN #10 tab 08/27/21 meloxicam 7.5 mg tablet 7.5 mg PO BID PRN #20 tab 08/27/21 tramadol 50 mg tablet 50 mg PO Q6H PRN #14 tab 08/28/21 Allergies Allergy/AdvReac Type Severity Reaction Status Date / Time NSAIDS (Non-Steroidal Allergy Unknown Verified 08/28/21 10:27 Anti-Inflamma zolpidem [From Ambien] Allergy sleep Verified 08/28/21 10:27 walking and eating eszopiclone [From Lunesta] AdvReac Severe sedated Verified 08/28/21 10:27 Review of Systems Review of Systems ROS Unobtainable: All systems reviewed & are unremarkable except as noted in HPI and below Patient History Medical History Ankle pain (1993) Cervical spine disease (~1999) Chronic back pain (1993) Foot pain (1993) Fractures (~2004) Hearing loss (~2000) Hemorrhoid (~1969) Hypertension Migraines (~1999) Neck pain (Unknown) Strain of left upper arm Tinnitus (~2000) Vision disorder Well adult Surgical History History of surgery on arm (12/2015) Status post appendectomy Status post discectomy Status post discectomy Family History Mother Age: 81 Diabetes mellitus Father No problems noted. Grandfather History of heart disease Social History Smoking Status: Never smoker alcohol intake: never Smoking Status: Never smoker alcohol intake frequency: holidays/special occasions only Substance Use Type: does not use Exam Narrative Exam Narrative: GENERAL: Alert and oriented x three, male in mild to moderate distress. HEENT: Head normocephalic, atraumatic, EOMI, pupils reactive, face symmetric, moist mucous membranes NECK: Supple, full range of motion CARDIOVASCULAR: Regular rate and rhythm without murmurs, rubs or gallops. RESPIRATORY: Breath sounds equal bilaterally, no wheezes rales or rhonchi. ABDOMEN: Soft, nontender. Normoactive bowel sounds all 4 quadrants. No guarding or rebound, rigidity, no mass : No CVA tenderness BACK: No cervical, thoracic vertebral point tenderness. Patient does have some midline tenderness at L3-4 region. Healed midline incision over lower lumbar region. No warmth, erythema or skin changes. Patient has mildly range of motion. Patient is able to roll over on the bed without assistance. He is most comfortable lying flat with his feet planted. Patient's gait is normal. Rectal exam is deferred. Muscle strength is 5/5 in lower extremities, dorsalis pedis and tibialis pulses are 2+ and lower extremities. Sensation is intact in the lower extremities. EXTREMITIES: Normal range of motion, no clubbing or edema. Neurovascularly intact NEUROLOGICAL: Cranial nerves II through XII grossly intact. Moving all extremities SKIN: Warm, dry, no petechiae, no rashes or lesions. Initial Vital Signs Initial Vital Signs: Vital Signs Temperature 97.9 F 08/27/21 05:12 Pulse Rate 66 08/27/21 05:12 Respiratory Rate 18 08/27/21 05:12 Blood Pressure 133/90 08/27/21 05:12 Pulse Oximetry 99 08/27/21 05:12 Course Orders Ordered: Discontinued Medications Diazepam (Diazepam 5 Mg Tablet) 10 mg PO NOW ONE Stop: 08/27/21 05:55 Last Admin: 08/27/21 06:05 Dose: 10 mg Documented by: STACY Ketorolac Tromethamine (Ketorolac 30 Mg/Ml Vial) 30 mg IM NOW ONE Stop: 08/27/21 05:55 Last Admin: 08/27/21 06:05 Dose: 30 mg Documented by: STACY Vital Signs Vital signs: Vital Signs - 8 hr 08/27/21 05:12 Temperature 97.9 F Pulse Rate 66 Respiratory Rate 18 Blood Pressure 133/90 Pulse Oximetry 99 MDM - Back Pain/Injury MDM Narrative Medical decision making narrative: This is a 61-year-old male comes in with complaint of acute on chronic low back pain after lifting a box that was heavier than anticipated. Patient has tried his home pain medications without improvement. No red flag symptoms that are felt to warrant imaging at this time. Patient has follow-up his primary care in the next week regarding his pain medications. He does note that he has a pain contract. Plan for oral NSAIDs in addition to his regular pain medications and muscle relaxer. Patient states Flexeril has not been helpful in the past. He has used Soma and benzodiazepines with improvement. Return precautions discussed. Discharge Plan Departure Patient Disposition: Home Clinical Impression: Low back pain Instructions: DI for Low Back Pain Activity Restrictions/Additional Instructions: Follow up with your physician for rehceck. Let them know that you did receive a controlled substance because of your pain contract. You may continue your regular oral pain medications. You can take meloxicam in addition twice daily. You can also take muscle relaxer 1 tablet every 8 hours as needed for spasm. This medication can make you sleepy do not drive, perform hazardous activity or make any major decisions while taking it. Prescription sent to [place]. Please return for rapidly worsening symptoms, loss of bowel or bladder control, new weakness, numbness or intermittent lift or move her legs or other new or concerning symptoms Prescriptions: New meloxicam 7.5 mg tablet 7.5 mg PO BID PRN (Reason: pain) Qty: 20 0RF diazepam [Valium] 10 mg tablet 10 mg PO TID PRN (Reason: muscle spasm) Qty: 10 0RF No Action (DME) Back Brace Qty: 1 0RF Dose Instruction: As directed Rx Instructions: use daily as needed. docusate sodium 100 mg capsule 100 mg PO QID PRN (Reason: constipation) Qty: 360 2RF Rx Instructions: Take 1-4 capsules as needed for constipation diphenhydramine HCl 25 mg tablet 25 mg PO TID Qty: 90 3RF Rx Instructions: 25 mg PO three times a day; lisinopril 10 mg tablet 10 mg PO DAILY Qty: 90 1RF pseudoephedrine HCl [Sudafed] 30 mg tablet 60 mg PO Q4-6H PRN (Reason: nasal congestion) Qty: 30 2RF Rx Instructions: DNExceed 4 doses/24h mupirocin 2 % ointment See Rx Instructions .ROUTE .COMPLEX Qty: 22 2RF Dose Instruction: apply topically to affected area(s) twice daily Rx Instructions: apply topically to affected area(s) twice daily hydrocodone-acetaminophen 5-325 mg tablet See Rx Instructions PO TID PRN (Reason: pain) Qty: 150 0RF Rx Instructions: 1-2 tabs PO three times a day PRN; max 5 per day Prescription must last 30 days okay to refill no earlier than August 27, 2021 (DME) Disabled Parking Permit See Rx Instructions .ROUTE .MEDSUPPLY Qty: 1 0RF Rx Instructions: Valid for 5 years (DME) Disabled Plates Permit See Rx Instructions .ROUTE .MEDSUPPLY Qty: 1 0RF Rx Instructions: Valid for 5 years diclofenac sodium [Voltaren] 1 % gel 2 g topical QID Qty: 100 1RF Rx Instructions: apply to single elbow, wrist or hand; for hand includes palm/fingers/back of hand tramadol 50 mg tablet 50 mg PO Q6H PRN (Reason: pain) Qty: 14 0RF Referrals: Darnell Hennessy DO [Primary Care Provider] -
[2021-08-27] MEDS: diazePAM 5 MG TABLET 10 MG PO (06:05)
[2021-08-27] MEDS: KETOROLAC 30 MG/ML VIAL IM (06:05)
[2021-08-27 06:20] VITALS: BP 133/85; PULSE 76; RESP 18; O2SAT 99
== END 2021-08-27 06:22 | disposition home or self-care (01) ==
PROVIDERS: Emergency Provider Emergency Medicine; Family Provider Family Medicine; PCP Family Medicine
DX: M54.50 Low back pain, unspecified (principal); R20.2 Paresthesia of skin
CPT/HCPCS: 96372; 99283; J1885

== ENCOUNTER 2021-08-28 10:18 | Emergency (ER) | payer MEDICAID, SELFPAY ==
[2021-08-28 10:27] VITALS: BP 133/84; PULSE 78; RESP 20; TEMP 36.4; O2SAT 98; BMI 32.3
--- NOTE | 2021-08-28 10:53 | ED_ITS ---
HPI - Back Pain/Injury General Chief Complaint: Back Pain/Injury Stated Complaint: back pain T-2 Time Seen by Provider: 08/28/21 10:52 Source: patient History of Present Illness HPI Narrative: The patient strained his low back while lifting boxes at home about 2 days ago. He complains of right lower back pain. He has a history of chronic back pain. He has prior cervical as levels lumbar surgery. He was treated 2 days ago Toradol, discharged on Valium for spasm. He has history of chronic back problems, is no PCM at this time. He frequently uses hydrocodone for back pain. He has follow-up scheduled with his PCM next week. He is here with ongoing pain. Toradol did help. He tolerated the medication well. He does not take oral NSAIDs due to history of GI bleed. He denies incontinence. He has no numbness or weakness into the lower extremities. Related Data Previous Rx's Medication Instructions Recorded Back Brace #1 ea 09/08/18 docusate sodium 100 mg capsule 100 mg PO QID PRN #360 cap 09/14/19 diphenhydramine HCl 25 mg tablet 25 mg PO TID #90 tab 10/15/20 diclofenac sodium 1 % topical gel 2 g TOPICAL QID #100 g 11/24/20 (Voltaren) Disabled Parking Permit #1 ea 02/10/21 Disabled Plates Permit #1 ea 02/10/21 lisinopril 10 mg tablet 10 mg PO DAILY #90 tab 06/25/21 pseudoephedrine HCl 30 mg tablet 60 mg PO Q4-6H PRN #30 tab 07/28/21 (Sudafed) mupirocin 2 % topical ointment See Rx Instructions .ROUTE 08/19/21 .COMPLEX #22 gram hydrocodone 5 mg-acetaminophen 325 See Rx Instructions PO TID PRN 08/21/21 mg tablet #150 tab diazepam 10 mg tablet (Valium) 10 mg PO TID PRN #10 tab 08/27/21 meloxicam 7.5 mg tablet 7.5 mg PO BID PRN #20 tab 08/27/21 tramadol 50 mg tablet 50 mg PO Q6H PRN #14 tab 08/28/21 Allergies Allergy/AdvReac Type Severity Reaction Status Date / Time NSAIDS (Non-Steroidal Allergy Unknown Verified 08/28/21 10:27 Anti-Inflamma zolpidem [From Ambien] Allergy sleep Verified 08/28/21 10:27 walking and eating eszopiclone [From charlene] AdvReac Severe sedated Verified 08/28/21 10:27 Review of Systems Constitutional Constitutional: Denies chills, Denies fever(s) and Denies headache(s) Comments: No recent illness. ENT Ears, Nose, Mouth, and Throat: Denies vertigo, Denies dizziness, Denies headache(s) and Denies sore throat Cardiovascular Cardiovascular: Denies chest pain and Denies dyspnea Respiratory Respiratory: Denies chest congestion and Denies dyspnea Gastrointestinal Gastrointestinal: Denies abdominal pain, Denies nausea and Denies vomiting Comments: No bowel incontinence. Musculoskeletal Musculoskeletal: Denies abnormal gait, Reports back pain, Denies numbness and Denies tingling Integumentary/Breasts Skin/Breast: Denies lesions and Denies rash Neurologic Neurologic: Denies abnormal gait, Denies confusion, Denies vertigo, Denies dizziness, Denies headache(s), Denies numbness and Denies tingling Psychiatric Psychiatric: Denies confusion Patient History Medical History Ankle pain (1993) Cervical spine disease (~1999) Chronic back pain (1993) Foot pain (1993) Fractures (~2004) Hearing loss (~2000) Hemorrhoid (~1969) Hypertension Migraines (~1999) Neck pain (Unknown) Strain of left upper arm Tinnitus (~2000) Vision disorder Well adult Surgical History History of surgery on arm (12/2015) Status post appendectomy Status post discectomy Status post discectomy Family History Mother Age: 81 Diabetes mellitus Father No problems noted. Grandfather History of heart disease Social History Smoking Status: Never smoker alcohol intake: never Smoking Status: Never smoker alcohol intake frequency: holidays/special occasions only Substance Use Type: does not use Exam Initial Vital Signs Initial Vital Signs: Vital Signs Temperature 97.6 F 08/28/21 10:27 Pulse Rate 78 08/28/21 10:27 Respiratory Rate 20 08/28/21 10:27 Blood Pressure 133/84 08/28/21 10:27 Pulse Oximetry 98 08/28/21 10:27 Const General: cooperative, healthy appearing and comfortable [facility] Head: normocephalic and atraumatic Resp Auscultation: clear to auscultation bilaterally Cardio Rate: regular rate Rhythm: regular rhythm Heart Sounds: S1 normal, S2 normal, no click, no gallops and no murmurs GI Palpation: soft, No mass and No tender Auscultation: normal bowel sounds Back/Spine/Pelvis Back: normal to inspection and back tenderness (Focal tenderness at L4. Right paraspinal tenderness with spasm.) Other: No SI tenderness. Skin General: no rashes or lesions noted Neuro General: patient alert, patient awake, patient oriented x3 and no focal motor deficits Extrem Other: Full range of motion both hips. No hip tenderness. Negative straight leg raise bilaterally. Psych Mental Status: mental status grossly normal Course Course Course Narrative: Toradol was given in the ER for pain relief. He was given a limited supply of Tramadol to use with Tylenol. He has a follow-up with PCM next week for ongoing management. Orders Ordered: Discontinued Medications Ketorolac Tromethamine (Ketorolac 30 Mg/Ml Vial) 30 mg IM NOW ONE Stop: 08/28/21 11:00 Last Admin: 08/28/21 11:06 Dose: 30 mg Documented by: KAREN Vital Signs Vital signs: Vital Signs - 8 hr 08/28/21 10:27 08/28/21 11:15 Temperature 97.6 F Pulse Rate 78 76 Respiratory Rate 20 16 Blood Pressure 133/84 139/95 H Pulse Oximetry 98 99 Discharge Plan Departure Patient Disposition: Home Clinical Impression: Acute lumbar myofascial strain Instructions: DI for Low Back Pain Activity Restrictions/Additional Instructions: Tylenol 2 tablets every 4 hours as needed for pain. Tramadol every 6 hours for added pain control. Follow-up with your doctors plan. Discuss physical therapy for ongoing care. Return to ER as necessary. Prescriptions: New tramadol 50 mg tablet 50 mg PO Q6H PRN (Reason: pain) Qty: 14 0RF No Action (DME) Back Brace Qty: 1 0RF Dose Instruction: As directed Rx Instructions: use daily as needed. docusate sodium 100 mg capsule 100 mg PO QID PRN (Reason: constipation) Qty: 360 2RF Rx Instructions: Take 1-4 capsules as needed for constipation diphenhydramine HCl 25 mg tablet 25 mg PO TID Qty: 90 3RF Rx Instructions: 25 mg PO three times a day; lisinopril 10 mg tablet 10 mg PO DAILY Qty: 90 1RF pseudoephedrine HCl [Sudafed] 30 mg tablet 60 mg PO Q4-6H PRN (Reason: nasal congestion) Qty: 30 2RF Rx Instructions: DNExceed 4 doses/24h mupirocin 2 % ointment See Rx Instructions .ROUTE .COMPLEX Qty: 22 2RF Dose Instruction: apply topically to affected area(s) twice daily Rx Instructions: apply topically to affected area(s) twice daily hydrocodone-acetaminophen 5-325 mg tablet See Rx Instructions PO TID PRN (Reason: pain) Qty: 150 0RF Rx Instructions: 1-2 tabs PO three times a day PRN; max 5 per day Prescription must last 30 days okay to refill no earlier than August 27, 2021 ([facility] [place] Disabled Parking Permit See Rx Instructions .ROUTE .MEDSUPPLY Qty: 1 0RF Rx Instructions: Valid for 5 years (DME) Disabled Plates Permit See Rx Instructions .ROUTE .MEDSUPPLY Qty: 1 0RF Rx Instructions: Valid for 5 years diclofenac sodium [Voltaren] 1 % gel 2 g topical QID Qty: 100 1RF Rx Instructions: apply to single elbow, wrist or hand; for hand includes palm/fingers/back of hand meloxicam 7.5 mg tablet 7.5 mg PO BID PRN (Reason: pain) Qty: 20 0RF diazepam [Valium] 10 mg tablet 10 mg PO TID PRN (Reason: muscle spasm) Qty: 10 0RF Referrals: Darnell Hennessy DO [Primary Care Provider] -
[2021-08-28] MEDS: KETOROLAC 30 MG/ML VIAL IM (11:06)
[2021-08-28 11:15] VITALS: BP 139/95; PULSE 76; RESP 16; O2SAT 99
== END 2021-08-28 11:15 | disposition home or self-care (01) ==
PROVIDERS: Emergency Provider Emergency Medicine; Family Provider Family Medicine; PCP Family Medicine
DX: S39.012A Strain of muscle, fascia and tendon of lower back, initial encounter (principal); X50.9XXA Other and unspecified overexertion or strenuous movements or postures, initial encounter
CPT/HCPCS: 96372; 99283; J1885

== ENCOUNTER 2021-08-31 09:29 | Emergency (ER) | payer MEDICAID, SELFPAY ==
[2021-08-31 09:34] VITALS: BP 137/89; PULSE 84; RESP 18; TEMP 36.4; O2SAT 99
--- NOTE | 2021-08-31 09:45 | ED.BACK ---
HPI - Back Pain/Injury General Chief Complaint: Back Pain/Injury Stated Complaint: Severe lower back pain Time Seen by Provider: 08/31/21 09:41 Source: patient Mode of arrival: Ambulatory History of Present Illness HPI Narrative: Patient is a 61-year-old male who has been here 2 times in the past week for evaluation right-sided lower back pain. Both times he has received a Toradol shot which he states helps is discomfort quite a bit. He is on pain medication provided by his primary doctor. He has an appointment his primary doctor tomorrow. He has been taking the medications he has been prescribed as directed. He states he is having some numbness on the front portion of his right leg. No fevers. No falls. Except for the numbness no other new symptoms. No urinary symptoms. No bowel changes. He is here asking for shot of Toradol to get him through until he can see his primary doctor tomorrow for further evaluation and treatment. Related Data Previous Rx's Medication Instructions Recorded Back Brace #1 ea 09/08/18 docusate sodium 100 mg capsule 100 mg PO QID PRN #360 cap 09/14/19 diphenhydramine HCl 25 mg tablet 25 mg PO TID #90 tab 10/15/20 diclofenac sodium 1 % topical gel 2 g TOPICAL QID #100 g 11/24/20 (Voltaren) Disabled Parking Permit #1 ea 02/10/21 Disabled Plates Permit #1 ea 02/10/21 lisinopril 10 mg tablet 10 mg PO DAILY #90 tab 06/25/21 pseudoephedrine HCl 30 mg tablet 60 mg PO Q4-6H PRN #30 tab 07/28/21 (Sudafed) mupirocin 2 % topical ointment See Rx Instructions .ROUTE 08/19/21 .COMPLEX #22 gram hydrocodone 5 mg-acetaminophen 325 See Rx Instructions PO TID PRN 08/21/21 mg tablet #150 tab diazepam 10 mg tablet (Valium) 10 mg PO TID PRN #10 tab 08/27/21 meloxicam 7.5 mg tablet 7.5 mg PO BID PRN #20 tab 08/27/21 tramadol 50 mg tablet 50 mg PO Q6H PRN #14 tab 08/28/21 diazepam 5 mg tablet (Valium) 5 mg PO BEDTIME PRN #5 tab 08/31/21 Allergies Allergy/AdvReac Type Severity Reaction Status Date / Time zolpidem [From Ambien] Allergy sleep Verified 08/31/21 09:34 walking and eating eszopiclone [From Lunesta] AdvReac Severe sedated Verified 08/31/21 09:34 NSAIDS (Non-Steroidal AdvReac Unknown Verified 08/31/21 09:34 Anti-Inflamma Review of Systems Constitutional Constitutional: Denies fever(s) Musculoskeletal Musculoskeletal: Reports system reviewed and no additional complaints, except as documented Integumentary/Breasts Skin/Breast: Reports system reviewed and no additional complaints, except as documented Neurologic Neurologic: Reports system reviewed and no additional complaints, except as documented Hematologic/Lymphatic On Anticoagulants: No Patient History Medical History Ankle pain (1993) Cervical spine disease (~1999) Chronic back pain (1993) Foot pain (1993) Fractures (~2004) Hearing loss (~2000) Hemorrhoid (~1969) Hypertension Migraines (~1999) Neck pain (Unknown) Strain of left upper arm Tinnitus (~2000) Vision disorder Well adult Surgical History History of surgery on arm (12/2015) Status post appendectomy Status post discectomy Status post discectomy Family History Mother Age: 81 Diabetes mellitus Father No problems noted. Grandfather History of heart disease Social History Smoking Status: Never smoker alcohol intake: never Smoking Status: Never smoker alcohol intake frequency: holidays/special occasions only Substance Use Type: does not use Exam Initial Vital Signs Initial Vital Signs: Vital Signs Temperature 97.6 F 08/31/21 09:34 Pulse Rate 84 08/31/21 09:34 Respiratory Rate 18 08/31/21 09:34 Blood Pressure 137/89 08/31/21 09:34 Pulse Oximetry 99 08/31/21 09:34 HENMT Head: normal to inspection and normocephalic Resp Effort & Inspection: normal respiratory effort Cardio Rate: regular rate Back/Spine/Pelvis Back: back tenderness Neuro Other: Decreasing sensation to light touch on the anterior lateral aspect of the right thigh. Extrem General: normal to inspection Psych Appearance: grossly normal and well kempt Course Orders Ordered: Discontinued Medications Ketorolac Tromethamine (Ketorolac 30 Mg/Ml Vial) 30 mg IM NOW ONE Stop: 08/31/21 09:50 Last Admin: 08/31/21 09:55 Dose: 30 mg Documented by: RAQUEL Vital Signs Vital signs: Vital Signs - 8 hr 08/31/21 09:34 Temperature 97.6 F Pulse Rate 84 Respiratory Rate 18 Blood Pressure 137/89 Pulse Oximetry 99 MDM - Back Pain/Injury MDM Narrative Medical decision making narrative: He cannot take oral nonsteroidal anti-inflammatories secondary to prior history of GI bleed. He is given Toradol here in the ER. He has an appoint with his primary doctor tomorrow. Will have him keep this appointment. He was given return precautions. No radiologic studies required today. He expressed understanding and agreement. Discharge Plan Departure Patient Disposition: Home Clinical Impression: Low back pain Instructions: DI for Low Back Pain Activity Restrictions/Additional Instructions: I do recommend that you keep your appointment with your primary doctor that is scheduled for tomorrow. Continue to take all of your medications as directed. Return to the emergency department for any new or worsening symptoms. Prescriptions: New diazepam [Valium] 5 mg tablet 5 mg PO BEDTIME PRN (Reason: muscle spasm) Qty: 5 0RF No Action (DME) Back Brace Qty: 1 0RF Dose Instruction: As directed Rx Instructions: use daily as needed. docusate sodium 100 mg capsule 100 mg PO QID PRN (Reason: constipation) Qty: 360 2RF Rx Instructions: Take 1-4 capsules as needed for constipation diphenhydramine HCl 25 mg tablet 25 mg PO TID Qty: 90 3RF Rx Instructions: 25 mg PO three times a day; lisinopril 10 mg tablet 10 mg PO DAILY Qty: 90 1RF pseudoephedrine HCl [Sudafed] 30 mg tablet 60 mg PO Q4-6H PRN (Reason: nasal congestion) Qty: 30 2RF Rx Instructions: DNExceed 4 doses/24h mupirocin 2 % ointment See Rx Instructions .ROUTE .COMPLEX Qty: 22 2RF Dose Instruction: apply topically to affected area(s) twice daily Rx Instructions: apply topically to affected area(s) twice daily hydrocodone-acetaminophen 5-325 mg tablet See Rx Instructions PO TID PRN (Reason: pain) Qty: 150 0RF Rx Instructions: 1-2 tabs PO three times a day PRN; max 5 per day Prescription must last 30 days okay to refill no earlier than August 27, 2021 (DME) Disabled Parking Permit See Rx Instructions .ROUTE .MEDSUPPLY Qty: 1 0RF Rx Instructions: Valid for 5 years (DME) Disabled Plates Permit See Rx Instructions .ROUTE .MEDSUPPLY Qty: 1 0RF Rx Instructions: Valid for 5 years diclofenac sodium [Voltaren] 1 % gel 2 g topical QID Qty: 100 1RF Rx Instructions: apply to single elbow, wrist or hand; for hand includes palm/fingers/back of hand meloxicam 7.5 mg tablet 7.5 mg PO BID PRN (Reason: pain) Qty: 20 0RF diazepam [Valium] 10 mg tablet 10 mg PO TID PRN (Reason: muscle spasm) Qty: 10 0RF tramadol 50 mg tablet 50 mg PO Q6H PRN (Reason: pain) Qty: 14 0RF Referrals: Darnell Hennessy, [Primary Care Provider] -
[2021-08-31] MEDS: KETOROLAC 30 MG/ML VIAL IM (09:55)
[2021-08-31 10:15] VITALS: PULSE 75; RESP 18; O2SAT 98
== END 2021-08-31 10:15 | disposition home or self-care (01) ==
PROVIDERS: Emergency Provider Emergency Medicine; Family Provider Family Medicine; PCP Family Medicine
DX: M54.50 Low back pain, unspecified (principal); R20.2 Paresthesia of skin
CPT/HCPCS: 96372; 99283; J1885

== ENCOUNTER → 2021-09-01 12:38 | Outpatient (CLI) | payer MEDICAID, SELFPAY ==
[2021-09-01 14:10] LABS: UR Morphine/Opiate cutoff 300 Negative (Negative); Ur Creatinine Normal (Normal); Ur Specific Gravity Normal (Normal); Urine Amphetamines Negative (Negative); Urine Cocaine Negative (Negative); Urine Methamphetamines Negative (Negative); Urine Phencyclidine Negative (Negative); Urine Tetrahydrocannabinol Negative (Negative); Urine pH Normal (Normal)
[2021-09-01 14:11] LABS: Urine Barbiturates Negative (Negative); Urine Benzodiazepines Positive (Negative); Urine MDMA Negative (Negative); Urine Methadone Negative (Negative); Urine Oxycodone Negative (Negative); Urine Tricyclic Antidepressant Negative (Negative)
== END ==
PROVIDERS: Family Provider Family Medicine; PCP Family Medicine; Referring Provider Family Medicine; Visit Provider Family Medicine
DX: G89.4 Chronic pain syndrome (principal)
CPT/HCPCS: 36415; 80305

== ENCOUNTER 2021-09-01 22:16 | Emergency (ER) | payer MEDICAID, SELFPAY ==
[2021-09-01 22:20] VITALS: BP 157/88; PULSE 107; RESP 16; TEMP 36.9; O2SAT 95; BMI 32.3
--- NOTE | 2021-09-01 22:22 | ED.BACK ---
HPI - Back Pain/Injury General Chief Complaint: Back Pain/Injury Stated Complaint: back is hurting Time Seen by Provider: 09/01/21 22:19 History of Present Illness HPI Narrative: 61-year-old male nonsmoker with extensive history of low back pain relating to a traumatic injury suffered when he had fell off a roof 35 years ago. He had been stable with the regimen of pain control for quite some time but recent changes in his primary care provider's approach as well as the possibility of aches eating his weight limit for lifting have resulted in any exacerbation of his right lower back pain over the past week or so. He states that he has some numbness and tingling that reaches down the lateral portion of his right leg. Pain is worse when he moves and improves with rest and seems to perhaps worsen at night. He denies any loss of control of bowel or bladder. He denies any lower extremity weakness. He has had no fever chills and denies any new trauma. He denies the use of blood thinners. He has been here 3 times in the past week and has had various medications given including Valium, Ultram, and Toradol intramuscular while in the emergency department. He presents tonight because he states that his back is aching and he is having trouble sleeping. He saw his primary care provider today and was given a prescription for hydrocodone. Additionally, he was preparing dinner tonight and lacerated the tip of his left ring finger with a sharp knife. His tetanus is up-to-date. He has minimal pain but some bleeding from the tip of his finger Related Data Previous Rx's Medication Instructions Recorded Back Brace #1 ea 09/08/18 docusate sodium 100 mg capsule 100 mg PO QID PRN #360 cap 09/14/19 diphenhydramine HCl 25 mg tablet 25 mg PO TID #90 tab 10/15/20 diclofenac sodium 1 % topical gel 2 g TOPICAL QID #100 g 11/24/20 (Voltaren) Disabled Parking Permit #1 ea 02/10/21 Disabled Plates Permit #1 ea 02/10/21 lisinopril 10 mg tablet 10 mg PO DAILY #90 tab 06/25/21 pseudoephedrine HCl 30 mg tablet 60 mg PO Q4-6H PRN #30 tab 07/28/21 (Sudafed) mupirocin 2 % topical ointment See Rx Instructions .ROUTE 08/19/21 .COMPLEX #22 gram hydrocodone 5 mg-acetaminophen 325 See Rx Instructions PO TID PRN 08/21/21 mg tablet #150 tab diazepam 10 mg tablet (Valium) 10 mg PO TID PRN #10 tab 08/27/21 meloxicam 7.5 mg tablet 7.5 mg PO BID PRN #20 tab 08/27/21 tramadol 50 mg tablet 50 mg PO Q6H PRN #14 tab 08/28/21 diazepam 5 mg tablet (Valium) 5 mg PO BEDTIME PRN #5 tab 08/31/21 gabapentin 300 mg capsule 300 mg PO BEDTIME #14 cap 09/01/21 hydrocodone 10 mg-acetaminophen 1 tab PO Q6H PRN #120 tab 09/01/21 325 mg tablet methylprednisolone 4 mg tablets in See Rx Instructions .ROUTE 09/01/21 a dose pack (Medrol (Titi)) .COMPLEX #21 ea Allergies Allergy/AdvReac Type Severity Reaction Status Date / Time zolpidem [From Ambien] Allergy sleep Verified 09/01/21 22:29 walking and eating eszopiclone [From Lunesta] AdvReac Severe sedated Verified 09/01/21 22:29 NSAIDS (Non-Steroidal AdvReac Unknown Verified 09/01/21 22:29 Anti-Inflamma Review of Systems Review of Systems Narrative: GENERAL: Denies chills, fatigue, malaise, fever, sweats. HEENT: Denies sinus pain, ear pain, sore throat, difficulty swallowing, dizziness. RESPIRATORY: Denies dyspnea, cough, wheezing, hemoptysis, sputum. CARDIOVASCULAR: Denies chest pain, palpitations, orthopnea, edema, GASTROINTESTINAL: Denies nausea, vomiting, abdominal pain, diarrhea, constipation, melena. : Denies dysuria, frequency, incontinence, hematuria, urinary retention. MUSCULOSKELETAL: See HPI SKIN: See HPI NEUROLOGIC: Denies weakness, headache, numbness, change in speech, confusion, seizures, incoordination. PSYCHIATRIC: No concerning psychosocial issues. 12 point review of systems is negative except for those stated above Patient History Medical History Ankle pain (1993) Cervical spine disease (~1999) Chronic back pain (1993) Foot pain (1993) Fractures (~2005) Hearing loss (~2000) Hemorrhoid (~1970) Hypertension Migraines (~1999) Neck pain (Unknown) Strain of left upper arm Tinnitus (~2000) Vision disorder Well adult Surgical History History of surgery on arm (12/2015) Status post appendectomy Status post discectomy Status post discectomy Family History Mother Age: 81 Diabetes mellitus Father No problems noted. Grandfather History of heart disease Social History Smoking Status: Never smoker alcohol intake: never Smoking Status: Never smoker alcohol intake frequency: holidays/special occasions only Substance Use Type: does not use Exam Narrative Exam Narrative: GENERAL: 61 year old patient appears stated age. Well-developed patient, in mild distress. HEAD: Atraumatic. Normocephalic. EYES: Pupils equal round and reactive. Extraocular motions intact. No scleral icterus. No injection or drainage. ENT: Nose without bleeding, purulent drainage. Throat without erythema, tonsillar hypertrophy or exudate. Airway patent. NECK: Trachea midline. Non tender CARDIOVASCULAR: Regular rate and rhythm without murmurs, gallops, or rubs. RESPIRATORY: Clear to auscultation. Breath sounds equal bilaterally. No wheezes, rales, or rhonchi. GASTROINTESTINAL: Abdomen soft, non-tender, nondistended. EXTREMITIES: No edema or joint tenderness. 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 Patient exam notes decreased range of motion and muscle spasm, but no CVA tenderness, or vertebral point tenderness. There are no symptoms of cauda equina such as saddle anesthesia, and decreased reflexes, decreased sensation or strength. NEURO: AOx3. SKIN: 1 cm laceration on tip of 4th finger with active bleeding. No nail, nail fold or nail bed involvement. No foreign body noted. Visualized in bloodless field no tendon involvement noted No rash or erythema of visible areas Initial Vital Signs Initial Vital Signs: Vital Signs Temperature 98.5 F 09/01/21 22:20 Pulse Rate 107 H 09/01/21 22:20 Respiratory Rate 16 09/01/21 22:20 Blood Pressure 157/88 H 09/01/21 22:20 Pulse Oximetry 95 09/01/21 22:20 Procedures Laceration Repair Laceration 1: Site: hand Side (If applicable): left Size (cm): 1.0 Description: linear Depth: simple, single layer Local Anesthetic: other anesthetic (Refused) Pre-repair: wound explored Skin layer closed with: nylon Size (cm): 4-0 Number of sutures: 2 Technique: simple, interrupted Course Orders Ordered: Discontinued Medications Ketorolac Tromethamine (Ketorolac 30 Mg/Ml Vial) 30 mg IM NOW ONE Stop: 09/01/21 22:34 Last Admin: 09/01/21 22:39 Dose: 30 mg Documented by: ALEN Lidocaine/Sodium Bicarbonate (Lido 1%/Sod Bicarb 8.4% (10ml) 10 Ml Syringe) 10 ml INJ NOW ONE Stop: 09/01/21 23:29 Last Admin: 09/01/21 23:41 Dose: Not Given Documented by: CHESTER Vital Signs Vital signs: Vital Signs - 8 hr 09/01/21 22:20 Temperature 98.5 F Pulse Rate 107 H Respiratory Rate 16 Blood Pressure 157/88 H Pulse Oximetry 95 MDM - Back Pain/Injury MDM Narrative Medical decision making narrative: Multiple etiologies of back pain considered including; Epidural abscess, cauda equina, mass occupying lesion, and other considered, however no evidence of a neurosurgical emergencies present. Return precautions given and questions answered to his apparent satisfaction Discharge Plan Departure Patient Disposition: Home Clinical Impression: Chronic lumbar radiculopathy, Laceration of left ring finger Instructions: DI for Back Pain With Sciatica Activity Restrictions/Additional Instructions: *You have been diagnosed with [acute on chronic lumbar radiculopathy. *What to do: *Please continue to take your regular medications as directed. [ x] New medication prescriptions sent to your pharmacy: [ [facility]] [ ] New medication written as a paper prescription [ ] No new medications given *Please follow up with your primary care provider in 2-3 days, call for an appointment. Let them know you were seen in the Emergency Department and that we ask that you be seen in follow up. We will electronically transmit a record of today's note if your PCP is in our system Please keep the wound clean and dry to the best of your ability. Please monitor for signs of infection such as redness to the skin or increasing pain. Have the sutures/dorina removed by your doctor in about 7 days. If you are unable to get into your doctor, we would be happy to remove the sutures/dorina in that same timeframe. *If you do not have a primary care provider please contact the [facility] Resource line at [phone]. They will ask some questions about your medical history and help get you set up with a doctor in the community. *Return to Emergency Department if you should have any new, worsening or concerning symptoms, such as [fever greater than 101 F, shaking chills, worsening pain, persistent vomiting or other bothersome symptoms] Prescriptions: New gabapentin 300 mg capsule 300 mg PO BEDTIME Qty: 14 0RF methylprednisolone [Medrol (Titi)] 4 mg tablets,dose pack See Rx Instructions .ROUTE .COMPLEX Qty: 21 0RF Rx Instructions: orally per package directions No Action (DME) Back Brace Qty: 1 0RF Dose Instruction: As directed Rx Instructions: use daily as needed. docusate sodium 100 mg capsule 100 mg PO QID PRN (Reason: constipation) Qty: 360 2RF Rx Instructions: Take 1-4 capsules as needed for constipation diphenhydramine HCl 25 mg tablet 25 mg PO TID Qty: 90 3RF Rx Instructions: 25 mg PO three times a day; lisinopril 10 mg tablet 10 mg PO DAILY Qty: 90 1RF pseudoephedrine HCl [Sudafed] 30 mg tablet 60 mg PO Q4-6H PRN (Reason: nasal congestion) Qty: 30 2RF Rx Instructions: DNExceed 4 doses/24h mupirocin 2 % ointment See Rx Instructions .ROUTE .COMPLEX Qty: 22 2RF Dose Instruction: apply topically to affected area(s) twice daily Rx Instructions: apply topically to affected area(s) twice daily hydrocodone-acetaminophen 5-325 mg tablet See Rx Instructions PO TID PRN (Reason: pain) Qty: 150 0RF Rx Instructions: 1-2 tabs PO three times a day PRN; max 5 per day Prescription must last 30 days okay to refill no earlier than August 27, 2021 (DME) Disabled Parking Permit See Rx Instructions .ROUTE .MEDSUPPLY Qty: 1 0RF Rx Instructions: Valid for 5 years (DME) Disabled Plates Permit See Rx Instructions .ROUTE .MEDSUPPLY Qty: 1 0RF Rx Instructions: Valid for 5 years hydrocodone-acetaminophen 10-325 mg tablet 1 tab PO Q6H PRN (Reason: pain) Qty: 120 0RF Rx Instructions: max 4 in a day Do not fill before September diclofenac sodium [Voltaren] 1 % gel 2 g topical QID Qty: 100 1RF Rx Instructions: apply to single elbow, wrist or hand; for hand includes palm/fingers/back of hand meloxicam 7.5 mg tablet 7.5 mg PO BID PRN (Reason: pain) Qty: 20 0RF diazepam [Valium] 10 mg tablet 10 mg PO TID PRN (Reason: muscle spasm) Qty: 10 0RF tramadol 50 mg tablet 50 mg PO Q6H PRN (Reason: pain) Qty: 14 0RF diazepam [Valium] 5 mg tablet 5 mg PO BEDTIME PRN (Reason: muscle spasm) Qty: 5 0RF Referrals: Bruce Jones DO [Physician] - Sandoval Jane DO [Emergency Provider] - Darnell Hennessy DO [Primary Care Provider] -
[2021-09-01] MEDS: KETOROLAC 30 MG/ML VIAL IM (22:39)
== END 2021-09-01 23:41 | disposition home or self-care (01) ==
PROVIDERS: Emergency Provider Emergency Medicine; Family Provider Family Medicine; PCP Family Medicine
DX: M54.16 Radiculopathy, lumbar region (principal); S61.215A Laceration without foreign body of left ring finger without damage to nail, initial encounter; W26.0XXA Contact with knife, initial encounter; G89.4 Chronic pain syndrome
CPT/HCPCS: 12001; 36415; 80305; 96372; 99283; J1885

== ENCOUNTER → 2021-09-08 08:43 | Outpatient (CLI) | payer MEDICAID, SELFPAY ==
--- NOTE | 2021-09-08 08:45 | DI.MRI.S_ITS ---
PROCEDURE: MR LUMBAR SPINE WO CON INDICATIONS: lumbar radiculopathy TECHNIQUE: Noncontrast sagittal T1 spin echo and T2 fast echo, sagittal STIR, axial T1 and T2 fast spin echo through the lumbar spine. In cases with scoliosis, additional coronal T2 fast spin echo may be performed. COMPARISON: None. FINDINGS: Image quality: Excellent. Alignment and Curvature: There is normal bony alignment. Bone Marrow: Marrow is of normal overall signal. No acute vertebral body compression fractures. Spinal Cord: Conus medullaris terminates at the L1 level. Visualized cord demonstrates normal signal and size. Paraspinous Soft Tissues: No paravertebral masses. T12-L1: Normal appearance. L1-L2: Normal appearance. L2-L3: Mild disc space narrowing and circumferential disc bulge results in moderate central stenosis. Moderate right and mild left foraminal stenosis L3-L4: Disc space narrowing with circumferential disc bulge, hypertrophic facet joints and ligamentum flavum laxity results in moderate central stenosis. Moderate left and mild right foraminal stenosis L4-L5: Joint space narrowing and circumferential disc bulge with hypertrophic facet joints and ligamentum flavum laxity results in moderate central stenosis. Moderate bilateral foraminal stenosis. L5-S1: Hypertrophic facet joints and disc bulge combine to result in moderate left and no right foraminal stenosis. No central stenosis. IMPRESSION: 1. Multilevel degenerative disc disease and arthropathy results in varying degrees of central and foraminal stenosis including moderate central stenosis at L2-3, L3-4 and L4-5. Approved by: Demetrio Quijano M.D. on 09/08/2021 at 17:04
== END ==
PROVIDERS: Family Provider Family Medicine; PCP Family Medicine; Referring Provider Family Medicine; Visit Provider Family Medicine
DX: M51.16 Intervertebral disc disorders with radiculopathy, lumbar region (principal); M47.26 Other spondylosis with radiculopathy, lumbar region; M48.061 Spinal stenosis, lumbar region without neurogenic claudication; M54.50 Low back pain, unspecified; G89.4 Chronic pain syndrome
CPT/HCPCS: 72148

== ENCOUNTER 2021-09-14 05:20 | Emergency (ER) | payer MEDICAID, SELFPAY ==
[2021-09-14 05:28] VITALS: BP 149/91; PULSE 107; RESP 18; TEMP 36.2; O2SAT 98; BMI 32.3
--- NOTE | 2021-09-14 05:32 | ED_ITS ---
HPI - General Adult General Chief complaint: Back Pain/Injury Stated complaint: needs a shot for back pain Time Seen by Provider: 09/14/21 05:21 Source: patient Mode of arrival: Ambulatory History of Present Illness HPI narrative: Patient is a 61-year-old male. Longstanding history of lower back pain. 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 Has been on a Haas 2 inhibitor. Has also received 120 04/12/2025 hydrocodone/acetaminophen that was filled 10 days ago. Review of his primary doctor's note at that time shows that there were some concerns that potentially he has not been taking his pain medication as directed according to his pain contract. He comes the emergency department today stating that he needs a shot for his ongoing lower back pain. States he has not been able sleep for the past 3 days. Related Data Previous Rx's Medication Instructions Recorded Back Brace #1 ea 09/08/18 docusate sodium 100 mg capsule 100 mg PO QID PRN #360 cap 09/14/19 diphenhydramine HCl 25 mg tablet 25 mg PO TID #90 tab 10/15/20 Disabled Parking Permit #1 ea 02/10/21 Disabled Plates Permit #1 ea 02/10/21 lisinopril 10 mg tablet 10 mg PO DAILY #90 tab 06/25/21 mupirocin 2 % topical ointment See Rx Instructions .ROUTE 08/19/21 .COMPLEX #22 gram tramadol 50 mg tablet 50 mg PO Q6H PRN #14 tab 08/28/21 celecoxib 200 mg capsule (Celebrex) 200 mg PO DAILY #30 cap 09/10/21 Allergies Allergy/AdvReac Type Severity Reaction Status Date / Time zolpidem [From Ambien] Allergy sleep Verified 09/10/21 12:55 walking and eating eszopiclone [From Lunesta] AdvReac Severe sedated Verified 09/10/21 12:55 NSAIDS (Non-Steroidal AdvReac Unknown Verified 09/10/21 12:55 Anti-Inflamma Review of Systems Constitutional Constitutional: Reports system reviewed and no additional complaints, except as documented Musculoskeletal Musculoskeletal: Reports back pain Hematologic/Lymphatic On Anticoagulants: No Patient History Medical History Ankle pain (1993) Cervical spine disease (~1999) Chronic back pain (1993) Facet arthropathy, lumbar Foot pain (1993) Fractures (~2004) Hearing loss (~2000) Hemorrhoid (~1969) Hypertension Migraines (~1999) Neck pain (Unknown) Strain of left upper arm Tinnitus (~2000) Vision disorder Well adult Surgical History History of surgery on arm (12/2015) Status post appendectomy Status post discectomy Status post discectomy Family History Mother Age: 81 Diabetes mellitus Father No problems noted. Grandfather History of heart disease Social History Smoking Status: Never smoker alcohol intake: never Smoking Status: Never smoker alcohol intake frequency: holidays/special occasions only Substance Use Type: does not use Exam Initial Vital Signs Initial Vital Signs: Vital Signs Temperature 97.1 F L 09/14/21 05:28 Pulse Rate 107 H 09/14/21 05:28 Respiratory Rate 18 09/14/21 05:28 Blood Pressure 149/91 H 09/14/21 05:28 Pulse Oximetry 98 09/14/21 05:28 HENMT Head: normal to inspection and normocephalic Resp Effort & Inspection: normal respiratory effort Cardio Rate: regular rate Neuro General: patient alert, patient awake and moves all extremities Course Orders Ordered: Discontinued Medications Ketorolac Tromethamine (Ketorolac 30 Mg/Ml Vial) 30 mg IM NOW ONE Stop: 09/14/21 05:33 Last Admin: 09/14/21 05:35 Dose: 30 mg Documented by: BRENTON Vital Signs Vital signs: Vital Signs - 8 hr 09/14/21 05:28 Temperature 97.1 F L Pulse Rate 107 H Respiratory Rate 18 Blood Pressure 149/91 H Pulse Oximetry 98 Medical Decision Making MDM Narrative Medical decision making narrative: Review the patient's primary doctor's note from a couple days ago shows that there is concern about him not adhering to his pain contract. He recently was seen by pain specialist. Was placed on a Haas 2 inhibitor. Received large amount of hydrocodone/acetaminophen just 10 days ago. Patient states he needs a shot. He states that Toradol has worked for him in the past. He states that he wants something for sleep. He has specifically for Valium. I told him that he would not be receiving Valium med in the emergency department. He needs to follow-up with his primary doctor. I would hesitate to give any further opioids or benzodiazepines to the patient. Patient left without his discharge instructions. Discharge Plan Departure Patient Disposition: Home Clinical Impression: Back pain Instructions: DI for Low Back Pain Activity Restrictions/Additional Instructions: Your chronic back pain needs to be managed by your primary doctor. You will no longer receive any opioid or benzodiazepine medication from the emergency department. You can contact the call center [phone] to help with establish a new primary doctor if you wish. Prescriptions: No Action (DME) Back Brace Qty: 1 0RF Dose Instruction: As directed Rx Instructions: use daily as needed. docusate sodium 100 mg capsule 100 mg PO QID PRN (Reason: constipation) Qty: 360 2RF Rx Instructions: Take 1-4 capsules as needed for constipation diphenhydramine HCl 25 mg tablet 25 mg PO TID Qty: 90 3RF Rx Instructions: 25 mg PO three times a day; lisinopril 10 mg tablet 10 mg PO DAILY Qty: 90 1RF mupirocin 2 % ointment See Rx Instructions .ROUTE .COMPLEX Qty: 22 2RF Dose Instruction: apply topically to affected area(s) twice daily Rx Instructions: apply topically to affected area(s) twice daily (DME) Disabled Parking Permit See Rx Instructions .ROUTE .MEDSUPPLY Qty: 1 0RF Rx Instructions: Valid for 5 years (DME) Disabled Plates Permit See Rx Instructions .ROUTE .MEDSUPPLY Qty: 1 0RF Rx Instructions: Valid for 5 years tramadol 50 mg tablet 50 mg PO Q6H PRN (Reason: pain) Qty: 14 0RF celecoxib [Celebrex] 200 mg capsule 200 mg PO DAILY Qty: 30 2RF Referrals: Darnell Hennessy, [Primary Care Provider] -
[2021-09-14] MEDS: KETOROLAC 30 MG/ML VIAL IM (05:35)
== END 2021-09-14 05:46 | disposition home or self-care (01) ==
PROVIDERS: Emergency Provider Emergency Medicine; Family Provider Family Medicine; PCP Family Medicine
DX: M54.50 Low back pain, unspecified (principal); Z79.891 Long term (current) use of opiate analgesic; Z79.899 Other long term (current) drug therapy; Z88.6 Allergy status to analgesic agent
CPT/HCPCS: 96372; 99283; J1885

== ENCOUNTER 2021-09-29 19:39 | Emergency (ER) | payer MEDICAID, SELFPAY ==
[2021-09-29 19:41] VITALS: BP 134/77; PULSE 98; RESP 18; TEMP 37.1; O2SAT 96; BMI 32.3
--- NOTE | 2021-09-29 19:52 | ED.BACK ---
HPI - Back Pain/Injury General Chief Complaint: Back Pain/Injury Stated Complaint: states needs a Toradol shot, can't sleep Time Seen by Provider: 09/29/21 19:52 Source: patient History of Present Illness HPI Narrative: 61-year-old male nonsmoker with extensive history of low back pain is managed by a pain specialist and has had recent MRI. He denies any new injury but complains of some midline back pain with radiation down his left leg that is keeping him awake. He denies any loss of control of bowel or bladder, takes no blood thinners and denies any fever or chills. He has had no lower extremity weakness. His pain is worse when he moves and improves with rest. He states that he has not been taking gabapentin or steroids in quite some time though he admits that there may be a prescription waiting for him at his local pharmacy. Related Data Previous Rx's Medication Instructions Recorded Back Brace #1 ea 09/08/18 docusate sodium 100 mg capsule 100 mg PO QID PRN #360 cap 09/14/19 diphenhydramine HCl 25 mg tablet 25 mg PO TID #90 tab 10/15/20 Disabled Parking Permit #1 ea 02/10/21 Disabled Plates Permit #1 ea 02/10/21 lisinopril 10 mg tablet 10 mg PO DAILY #90 tab 06/25/21 mupirocin 2 % topical ointment See Rx Instructions .ROUTE 08/19/21 .COMPLEX #22 gram tramadol 50 mg tablet 50 mg PO Q6H PRN #14 tab 08/28/21 celecoxib 200 mg capsule (Celebrex) 200 mg PO DAILY #30 cap 09/10/21 gabapentin 300 mg capsule 300 mg PO BEDTIME #14 cap 09/29/21 methylprednisolone 4 mg tablets in See Rx Instructions .ROUTE 09/29/21 a dose pack (Medrol (Titi)) .COMPLEX #21 ea Allergies Allergy/AdvReac Type Severity Reaction Status Date / Time eszopiclone [From Lunesta] AdvReac Severe sedated Verified 09/29/21 19:52 NSAIDS (Non-Steroidal AdvReac Unknown Verified 09/29/21 19:52 Anti-Inflamma zolpidem [From Ambien] AdvReac sleep Verified 09/29/21 19:52 walking and eating Review of Systems Review of Systems Narrative: GENERAL: Denies chills, fatigue, malaise, fever, sweats. HEENT: Denies sinus pain, ear pain, sore throat, difficulty swallowing, dizziness. RESPIRATORY: Denies dyspnea, cough, wheezing, hemoptysis, sputum. CARDIOVASCULAR: Denies chest pain, palpitations, orthopnea, edema, GASTROINTESTINAL: Denies nausea, vomiting, abdominal pain, diarrhea, constipation, melena. : Denies dysuria, frequency, incontinence, hematuria, urinary retention. MUSCULOSKELETAL: See HPI SKIN: Denies rash, skin lesions, or other NEUROLOGIC: See HPI PSYCHIATRIC: No concerning psychosocial issues. 12 point review of systems is negative except for those stated above Patient History Medical History Ankle pain (1993) Cervical spine disease (~1999) Chronic back pain (1993) Facet arthropathy, lumbar Foot pain (1993) Fractures (~2004) Hearing loss (~2000) Hemorrhoid (~1969) Hypertension Migraines (~1999) Neck pain (Unknown) Strain of left upper arm Tinnitus (~2000) Vision disorder Well adult Surgical History History of surgery on arm (12/2015) Status post appendectomy Status post discectomy Status post discectomy Family History Mother Age: 81 Diabetes mellitus Father No problems noted. Grandfather History of heart disease Social History Smoking Status: Never smoker alcohol intake: never Smoking Status: Never smoker alcohol intake frequency: holidays/special occasions only Substance Use Type: does not use Exam Narrative Exam Narrative: GENERAL: [61] year old patient appears stated age. Well-developed patient, in mild distress. HEAD: Atraumatic. Normocephalic. EYES: Pupils equal round and reactive. Extraocular motions intact. No scleral icterus. No injection or drainage. ENT: Nose without bleeding, purulent drainage. Throat without erythema, tonsillar hypertrophy or exudate. Airway patent. NECK: Trachea midline. Non tender CARDIOVASCULAR: Regular rate and rhythm without murmurs, gallops, or rubs. RESPIRATORY: Clear to auscultation. Breath sounds equal bilaterally. No wheezes, rales, or rhonchi. GASTROINTESTINAL: Abdomen soft, non-tender, nondistended. EXTREMITIES: No edema or joint tenderness. BACK: unit tender but free of any obvious external abnormalities. Patient exam notes decreased range of motion and muscle spasm, but no CVA tenderness, or vertebral point tenderness. There are no symptoms of cauda equina such as saddle anesthesia, and decreased reflexes, decreased sensation or strength. NEURO: AOx3. SKIN: No rash or erythema of visible areas Initial Vital Signs Initial Vital Signs: Vital Signs Temperature 98.7 F 09/29/21 19:41 Pulse Rate 98 H 09/29/21 19:41 Respiratory Rate 18 09/29/21 19:41 Blood Pressure 134/77 09/29/21 19:41 Pulse Oximetry 96 09/29/21 19:41 Course Orders Ordered: Discontinued Medications Ketorolac Tromethamine (Ketorolac 30 Mg/Ml Vial) 30 mg IM NOW ONE Stop: 09/29/21 19:58 Last Admin: 09/29/21 20:05 Dose: 30 mg Documented by: ALEN Vital Signs Vital signs: Vital Signs - 8 hr 09/29/21 19:41 09/29/21 20:25 09/29/21 20:30 Temperature 98.7 F Pulse Rate 98 H 90 Respiratory Rate 18 18 Blood Pressure 134/77 136/90 122/75 Pulse Oximetry 96 MDM - Back Pain/Injury MDM Narrative Medical decision making narrative: Multiple etiologies of back pain considered including; Epidural abscess, cauda equina, mass occupying lesion, and other considered, however there are no red flag findings suggestive of a neurosurgical emergency. Patient has not been taking the full complement of medications it we have discussed the likelihood that they will help given his radicular symptoms. Return precautions discussed and questions answered to his apparent satisfaction Discharge Plan Departure Patient Disposition: Home Clinical Impression: Lumbar disc disease with radiculopathy Instructions: DI for Low Back Pain Activity Restrictions/Additional Instructions: *You have been diagnosed with [acute on chronic lumbar pain with radiculopathy *What to do: *Please continue to take your regular medications as directed. [ x] New medication prescriptions sent to your pharmacy: [[facility]] [ ] New medication written as a paper prescription [ ] No new medications given *Please follow up with your primary care provider in 2-3 days, call for an appointment. Let them know you were seen in the Emergency Department and that we ask that you be seen in follow up. We will electronically transmit a record of today's note if your PCP is in our system *If you do not have a primary care provider please contact the [facility] Resource line at [phone]. They will ask some questions about your medical history and help get you set up with a doctor in the community. *Return to Emergency Department if you should have any new, worsening or concerning symptoms, such as [fever greater than 101 F, shaking chills, worsening pain, persistent vomiting, loss of control of bowel or bladder, leg weakness or other bothersome symptoms] Prescriptions: New gabapentin 300 mg capsule 300 mg PO BEDTIME Qty: 14 0RF methylprednisolone [Medrol (Titi)] 4 mg tablets,dose pack See Rx Instructions .ROUTE .COMPLEX Qty: 21 0RF Rx Instructions: orally per package directions No Action (DME) Back Brace Qty: 1 0RF Dose Instruction: As directed Rx Instructions: use daily as needed. docusate sodium 100 mg capsule 100 mg PO QID PRN (Reason: constipation) Qty: 360 2RF Rx Instructions: Take 1-4 capsules as needed for constipation diphenhydramine HCl 25 mg tablet 25 mg PO TID Qty: 90 3RF Rx Instructions: 25 mg PO three times a day; lisinopril 10 mg tablet 10 mg PO DAILY Qty: 90 1RF mupirocin 2 % ointment See Rx Instructions .ROUTE .COMPLEX Qty: 22 2RF Dose Instruction: apply topically to affected area(s) twice daily Rx Instructions: apply topically to affected area(s) twice daily (DME) Disabled Parking Permit See Rx Instructions .ROUTE .MEDSUPPLY Qty: 1 0RF Rx Instructions: Valid for 5 years (DME) Disabled Plates Permit See Rx Instructions .ROUTE .MEDSUPPLY Qty: 1 0RF Rx Instructions: Valid for 5 years tramadol 50 mg tablet 50 mg PO Q6H PRN (Reason: pain) Qty: 14 0RF celecoxib [Celebrex] 200 mg capsule 200 mg PO DAILY Qty: 30 2RF Referrals: Darnell Hennessy, DO [Primary Care Provider] -
[2021-09-29] MEDS: KETOROLAC 30 MG/ML VIAL IM (20:05)
[2021-09-29 20:25] VITALS: BP 136/90; PULSE 90; RESP 18
[2021-09-29 20:30] VITALS: BP 122/75
== END 2021-09-29 20:39 | disposition home or self-care (01) ==
PROVIDERS: Emergency Provider Emergency Medicine; Family Provider Family Medicine; PCP Family Medicine
DX: M51.16 Intervertebral disc disorders with radiculopathy, lumbar region (principal)
CPT/HCPCS: 96372; 99283; J1885

== ENCOUNTER → 2021-11-06 09:42 | Outpatient (CLI) | payer MEDICAID, SELFPAY ==
[2021-11-06 12:10] LABS: Hematocrit 45.3 % (41-53); Hemoglobin 15.7 g/dL (13.5-17.5); Mean Corpuscular HGB Conc 34.7 % (30-36); Mean Corpuscular Hemoglobin 30.1 PG (26-34); Mean Corpuscular Volume 86.7 fL (80-100); Platelet Count 193 X10^3/uL (150-400); Red Blood Cell Count 5.23 X10^6/uL (4.5-5.9); Red Cell Distribution Width 13.5 % (11.6-14.8); White Blood Cell Count 8.1 X10^3/uL (4.5-11.0)
[2021-11-06 12:27] LABS: Alanine Aminotransferase 24 IU/L (<50); Albumin Globulin Ratio 1.6 (1.0-2.8); Alkaline Phosphatase 75 U/L (38-126); Aspartate Aminotransferase 32 IU/L (17-59); BUN Creatinine Ratio 10.9 (6-22); Bilirubin Total 0.5 mg/dL (0.2-1.3); Blood Urea Nitrogen 10 mg/dL (9-20); Calcium 9.5 mg/dL (8.4-10.2); Carbon Dioxide 25 mmol/L (22-32); Chloride 101 mmol/L (98-107); Cholesterol 183 mg/dL (140-199); Estimated Glomerular Filt Rate > 60 mL/min (>60); Globulin 3.2 g/dL (1.7-4.1); Glucose 97 mg/dL (80-110); HDL Cholesterol 44 mg/dL (40-60); HEMOLYSIS < 15 (0-50); LDL Cholesterol Calculated 111 mg/dL (<100); Sodium 137 mmol/L (137-145); Total Protein 8.2 g/dL (6.3-8.2); Triglycerides 140 mg/dL (35-150)
[2021-11-06 12:53] LABS: Prostate Specific Antigen Scrn 1.28 ng/mL (0.1-4.0)
[2021-11-06 12:57] LABS: TSH w/ Reflex to FT4 0.86 uIU/mL (0.47-4.68)
== END ==
PROVIDERS: Family Provider Family Medicine; PCP Internal Medicine; Referring Provider Internal Medicine; Visit Provider Internal Medicine
DX: G89.29 Other chronic pain (principal); I10 Essential (primary) hypertension; M54.50 Low back pain, unspecified; Z12.5 Encounter for screening for malignant neoplasm of prostate
CPT/HCPCS: 36415; 80053; 80061; 84443; 85027; G0103

== ENCOUNTER 2022-01-04 22:23 | Emergency (ER) | payer MEDICAID, SELFPAY ==
[2022-01-04 22:33] VITALS: BP 143/100; PULSE 85; RESP 18; TEMP 36.3; O2SAT 98
--- NOTE | 2022-01-04 22:51 | DI.RAD.S_ITS ---
PROCEDURE: XR ACUTE ABDOMEN SERIES INDICATIONS: abdominal pain TECHNIQUE: One view chest and two views of the abdomen were acquired. COMPARISON: None. FINDINGS: Surgical changes and devices: None. Chest: Lungs are clear. Heart size is normal. No pleural effusions. No pneumoperitoneum. Abdomen: Bowel gas pattern demonstrates mild gaseous distention of the transverse colon with a few air-fluid levels in the left upper quadrant. No suspicious calcifications. Bones: No suspicious bony lesions. IMPRESSION: 1. Nonspecific bowel gas pattern with mild gas distention of the transverse colon with associated air-fluid levels. Recommend correlation with subsequent CT. Dictated by: Freddy Bullock M.D. on 01/05/2022 at 1:55 Approved by: Freddy Bullock M.D. on 01/05/2022 at 1:56
[2022-01-04 23:15] LABS: Add Manual Diff / Slide Review NO; Basophils Absolute Auto 0 /uL (0-100); Basophils Percent Auto 0.5 % (0-2); Eosinophils Absolute Auto 100 /uL (0-450); Eosinophils Percent Auto 1.3 % (2-4); Hematocrit 40.4 % (41-53); Hemoglobin 13.8 g/dL (13.5-17.5); Lymphocytes Absolute Auto 1700 /uL (1100-4500); Lymphocytes Percent Auto 23.6 % (25-40); Mean Corpuscular HGB Conc 34.3 % (30-36); Mean Corpuscular Volume 84.5 fL (80-100); Monocytes Absolute Auto 400 /uL (0-900); Monocytes Percent Auto 5.4 % (3-14); Neutrophils Absolute Auto 4900 /uL (1500-7000); Neutrophils Percent Auto 69.2 % (50-75); Platelet Count 176 X10^3/uL (150-400); Red Blood Cell Count 4.78 X10^6/uL (4.5-5.9); Red Cell Distribution Width 13.1 % (11.6-14.8); White Blood Cell Count 7.1 X10^3/uL (4.5-11.0)
[2022-01-04 23:16] LABS: Alanine Aminotransferase 16 IU/L (<50); Albumin 4.3 g/dL (3.5-5.0); Albumin Globulin Ratio 1.6 (1.0-2.8); Alkaline Phosphatase 66 U/L (38-126); Aspartate Aminotransferase 24 IU/L (17-59); BUN Creatinine Ratio 20.7 (6-22); Bilirubin Total 0.5 mg/dL (0.2-1.3); Blood Urea Nitrogen 17 mg/dL (9-20); Calcium 8.9 mg/dL (8.4-10.2); Carbon Dioxide 25 mmol/L (22-32); Chloride 106 mmol/L (98-107); Estimated Glomerular Filt Rate > 60 mL/min (>60); Globulin 2.7 g/dL (1.7-4.1); Glucose 112 mg/dL (80-110); HEMOLYSIS < 15 (0-50); Lipase 31 U/L (23-300); Potassium 3.9 mmol/L (3.4-5.1); Sodium 139 mmol/L (137-145)
[2022-01-04 23:22] LABS: COVID19 -Nasal RAPID Negative (Negative)
[2022-01-04] MEDS: HYDROMORPHONE 0.5 MG INJ (23:54)
[2022-01-05] VITALS (25 sets, daily range): BP systolic 98–139; BP diastolic 55–90; PULSE 72–110; RESP 20; O2SAT 91–98
--- NOTE | 2022-01-05 00:06 | DI.CT.S_ITS ---
PROCEDURE: CT ABDOMEN PELVIS W CON INDICATIONS: severe abdominal pain, SBO TECHNIQUE: After the administration of IV contrast, axial sections were acquired from the lung bases to the pubic symphysis. Coronal and sagittal reformats were performed. For radiation dose reduction, the following was used: automated exposure control, adjustment of mA and/or kV according to patient size. COMPARISON: [facility], CR, XR ACUTE ABDOMEN SERIES, 01/04/2022, 23:11. FINDINGS: Image quality: Excellent. Lung bases: There is mild dependent atelectasis bilaterally. Heart: Heart is normal in size. ABDOMEN: Liver: No mass lesion. Gallbladder: Within normal limits without calcified gallstones. Biliary ducts: No biliary ductal dilatation. Pancreas: Unremarkable. Spleen: Normal in size. Adrenal Glands: No adrenal nodules. Kidneys and Ureters: No hydronephrosis. Stomach and Bowel: There is a nasogastric tube extending to the gastroesophageal junction. Stomach and small bowel loops appear normal in caliber and wall thickness. There is segmental wall thickening within the ascending colon with luminal narrowing suspicious for an intramural mass. There is associated minimal pericolonic fat stranding without pericolonic invasion. Distally, there is mild segmental colonic wall thickening within the descending and sigmoid colon extending to the rectum with mild pericolonic fat stranding consistent with a colitis. Peritoneum: No abnormal intraperitoneal fluid. No free air. Ventral Wall: No hernia. Abdominal Nodes: No retroperitoneal or mesenteric adenopathy by size criteria. Vessels: Aorta and inferior vena cava are normal in size. PELVIS: Pelvic Organs: Unremarkable. Bladder: Unremarkable. Pelvic Nodes: No enlarged lymph nodes. Miscellaneous: No inguinal hernias are seen. Bones: Visualized osseous structures demonstrate no suspicious focal lesions. IMPRESSION: 1. Segmental wall thickening and luminal narrowing within the ascending colon suspicious for an intramural mass and suggestive of colon cancer. Recommend correlation with colonoscopy. 2. Mild segmental wall thickening with pericolonic fat stranding in the descending and sigmoid colon consistent with a nonspecific infectious or inflammatory colitis. 3. Nasogastric tube extends to the gastroesophageal junction. Consider further advancement into the stomach. Dictated by: Freddy Bullock M.D. on 01/05/2022 at 1:43 Approved by: Freddy Bullock M.D. on 01/05/2022 at 1:48
[2022-01-05] MEDS: MIDAZOLAM 2 MG/2 ML VIAL IV (00:29)
--- NOTE | 2022-01-05 00:38 | PC.NURSE ---
Wilda WILKERSON and Ludy WILKERSON
--- NOTE | 2022-01-05 00:52 | ED.ABDPAIN ---
HPI - Abdominal Pain General Chief Complaint: Abdominal Pain Stated Complaint: LOWER ABD PAIN NAUSEA Time Seen by Provider: 01/04/22 22:48 Source: patient Mode of arrival: Ambulatory History of Present Illness HPI narrative: 61-year-old male nonsmoker with history of hypertension and chronic use of opioids presents with a chief complaint of a sudden onset and severe abdominal pain with associated nausea and vomiting. He states that he was having difficulty moving his bowels and Ms. Not even passing gas anymore. He denies any fever or chills. His pain is worsening and is made worse by motion and improves with rest. He denies any chest pain or shortness of breath. He denies any urinary complaints such as dysuria, frequency or urgency. His only abdominal surgery was an appendix years ago Related Data Home Medications Medication Instructions Recorded Confirmed aspirin 81 mg tablet,delayed 81 mg PO DAILY 11/06/21 11/06/21 release hydrocortisone 1 % topical cream 1 applic topical BID PRN 11/06/21 11/06/21 (Cortisone (hydrocortisone)) hydrocortisone acetate 25 mg 25 mg UT BID PRN 11/06/21 11/06/21 rectal suppository pseudoephedrine HCl 60 mg tablet 30 mg PO .4 times daily PRN 11/06/21 11/06/21 Previous Rx's Medication Instructions Recorded docusate sodium 100 mg capsule 100 mg PO QID PRN constipation 09/14/19 #360 caps diphenhydramine HCl 25 mg tablet 25 mg PO TID #90 tabs 10/15/20 Disabled Parking Permit #1 ea 02/10/21 hydrocodone 10 mg-acetaminophen 1 tab PO Q4-6H PRN pain #150 tabs 11/06/21 325 mg tablet hydrocodone 10 mg-acetaminophen 1 tab PO Q4-6H PRN pain #150 tabs 11/06/21 325 mg tablet pool therapy See Rx Instructions .Route 11/06/21 .COMPLEX #90 units carisoprodol 350 mg tablet 350 mg PO TID PRN muscle pain #60 11/30/21 tabs lisinopril 10 mg tablet 10 mg PO DAILY #30 tabs 12/01/21 mupirocin 2 % topical ointment See Rx Instructions .Route 12/01/21 .COMPLEX #22 grams hydrocodone 10 mg-acetaminophen 1 tab PO Q4-6H PRN pain #180 tabs 12/30/21 325 mg tablet Allergies Allergy/AdvReac Type Severity Reaction Status Date / Time eszopiclone [From Lunesta] AdvReac Severe sedated Verified 11/06/21 08:16 NSAIDS (Non-Steroidal AdvReac Unknown Verified 11/06/21 08:16 Anti-Inflamma zolpidem [From Ambien] AdvReac sleep Verified 11/06/21 08:16 walking and eating Review of Systems Review of Systems Narrative: GENERAL: See HPI HEENT: Denies sinus pain, ear pain, sore throat, difficulty swallowing, dizziness. RESPIRATORY: Denies dyspnea, cough, wheezing, hemoptysis, sputum. CARDIOVASCULAR: Denies chest pain, palpitations, orthopnea, edema, GASTROINTESTINAL: See HPI : Denies dysuria, frequency, incontinence, hematuria, urinary retention. MUSCULOSKELETAL: denies weakness, joint pain, or bony pain SKIN: Denies rash, skin lesions, or other NEUROLOGIC: Denies weakness, headache, numbness, change in speech, confusion, seizures, incoordination. PSYCHIATRIC: No concerning psychosocial issues. 12 point review of systems is negative except for those stated above Patient History Medical History Ankle pain (1993) Cervical spine disease (~1999) Chronic back pain (1993) Chronic low back pain Chronic, continuous use of opioids Essential hypertension Facet arthropathy, lumbar Foot pain (1993) Fractures (~2004) Hearing loss (~2000) Hemorrhoid (~1969) Migraines (~1999) Neck pain (Unknown) Obesity (BMI 30.0-34.9) Strain of left upper arm Tinnitus (~2000) Vision disorder Surgical History History of surgery on arm (12/2015) Status post appendectomy Status post discectomy Status post discectomy Family History Mother Age: 81 Diabetes mellitus Father No problems noted. 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 Well-developed patient, in moderate distress, obviously uncomfortable, rubbing his abdomen, actively vomiting HEAD: Atraumatic. Normocephalic. EYES: Pupils equal round and reactive. Extraocular motions intact. No scleral icterus. No injection or drainage. ENT: Nose without bleeding, purulent drainage. Throat without erythema, tonsillar hypertrophy or exudate. Airway patent. NECK: Trachea midline. Non tender CARDIOVASCULAR: Regular rate and rhythm without murmurs, gallops, or rubs. RESPIRATORY: Clear to auscultation. Breath sounds equal bilaterally. No wheezes, rales, or rhonchi. GASTROINTESTINAL: Abdomen soft, but generally tender, more so in the lower abdomen with decreased bowel sounds in the lower quadrants EXTREMITIES: No edema or joint tenderness. BACK: Nontender without deformity or crepitance. No flank tenderness. NEURO: AOx3. SKIN: No rash or erythema of visible areas Initial Vital Signs Initial Vital Signs: Vital Signs Temperature 97.3 F L 01/04/22 22:33 Pulse Rate 85 01/04/22 22:33 Respiratory Rate 18 01/04/22 22:33 Blood Pressure 143/100 H 01/04/22 22:33 Pulse Oximetry 98 01/04/22 22:33 Oxygen Delivery Method 01/04/22 22:33 Course Orders Ordered: ED Orders 01/04/22 22:36 EKG-12 Lead Stat 01/04/22 22:51 XR acute abdomen series Stat 01/04/22 23:00 COVID19 -Nasal RAPID/Pre-Proc Stat Complete Blood Count AUTO DIFF Stat Comprehensive Metabolic Panel Stat Lipase Stat 01/05/22 00:06 CT abdomen pelvis w con Stat Discontinued Medications Midazolam HCl (Midazolam 2 Mg/2 Ml Vial) 2 mg IV NOW ONE Stop: 01/05/22 00:25 Last Admin: 01/05/22 00:29 Dose: 2 mg Documented By: [facility] Reevaluation(s) Reevaluation #1: patient feeling worse with NG tube and demanding it be removed Consultations Consultation #1: discussed with Dr. Mott (Gen Surgery), happy to accept on his service Vital Signs Vital signs: Vital Signs - 8 hr 01/04/22 22:33 01/05/22 03:00 Temperature 97.3 F L Pulse Rate 85 Respiratory Rate 18 Blood Pressure 143/100 H 139/90 Pulse Oximetry 98 Oxygen Delivery Method Room Air MDM - Abdominal Pain Lab Data Result diagrams: 01/04/22 23:00 01/04/22 23:00 Labs: Lab Results 01/04/22 01/04/22 01/04/22 Range/Units 23:00 23:00 23:00 WBC 7.1 (4.5-11.0) X10^3/uL RBC 4.78 (4.5-5.9) X10^6/uL Hgb 13.8 (13.5-17.5) g/dL Hct 40.4 L (41-53) % MCV 84.5 (80-100) fL MCH 29.0 (26-34) PG MCHC 34.3 (30-36) % RDW 13.1 (11.6-14.8) % Plt Count 176 (150-400) X10^3/uL Neut % (Auto) 69.2 (50-75) % Lymph % (Auto) 23.6 L (25-40) % Austin % (Auto) 5.4 (3-14) % Eos % (Auto) 1.3 L (2-4) % Baso % (Auto) 0.5 (0-2) % Neut # (Auto) 4900 (7727-6860) /uL Lymph # (Auto) 1700 (3672-3485) /uL Austin # (Auto) 400 (0-900) /uL Eos # (Auto) 100 (0-450) /uL Baso # (Auto) 0 (0-100) /uL Sodium 139 (137-145) mmol/L Potassium 3.9 (3.4-5.1) mmol/L Chloride 106 (98-107) mmol/L Carbon Dioxide 25 (22-32) mmol/L BUN 17 (9-20) mg/dL Creatinine 0.82 (0.66-1.25) mg/dL Estimated GFR > 60 (>60) mL/min BUN/Creatinine Ratio 20.7 (6-22) Glucose 112 H (80-110) mg/dL Calcium 8.9 (8.4-10.2) mg/dL Total Bilirubin 0.5 (0.2-1.3) mg/dL AST 24 (17-59) IU/L ALT 16 (<50) IU/L Alkaline Phosphatase 66 (38-126) U/L Total Protein 7.0 (6.3-8.2) g/dL Albumin 4.3 (3.5-5.0) g/dL Globulin 2.7 (1.7-4.1) g/dL Albumin/Globulin Ratio 1.6 (1.0-2.8) Lipase 31 (23-300) U/L SARS-CoV-2 (PCR) Negative (Negative) Imaging Data Abdominal x-ray: Radiologist's Impression: ? Chart Viewer Diagnostics Subcategory All Activity ??:?? All Time ??:?? All Subcategories Filter Laboratory Imaging Microbiology Pathology Blood Bank Tests Cardiovascular Other Specialty DATE TYPE STATUS REF RANGE/AUTHOR Hx Today 00:06 Abdomen/Pelvis CT Signed Freddy Bullock 01/04/22 22:51 Chest/Abdomen X-ray Signed Freddy Bullock 09/08/21 08:45 Lumbar Spine MRI Signed Demetrio Quijano 02/10/21 08:52 Lumbar Spine X-Ray Signed Valdemar Main 09/27/19 09:10 Lumbar Spine X-Ray Signed Peyton Trujillo [facility] 61, M?1960 MRN#? [id number] ADM [place],?[facility] ED??R04?? 92.533kg ? Acc#? [id number] Resus Status Not Ordered No Hx Avail Special Indicators Primary[facility] 30Min Appt Only Home Meds Not Confirmed Prescription Monitoring Program Total 180 MME/Day Unconfirmed MEDICATIONS (INSTRUCTIONS) LAST TAKEN Active ??aspirin 81 mg tablet,delayed release ??81 mgPODAILY ??carisoprodol 350 mg tablet ??350 mgPOTIDPRNmuscle pain#60 tabs ??diphenhydramine HCl 25 mg tablet ??25 mgPOTID#90 tabs ??docusate sodium 100 mg capsule ??100 mgPOQIDPRNconstipation#360 caps ??hydrocodone 10 mg-acetaminophen 325 mg tablet ??1 tabPOQ4-6HPRNpain#180 tabs 60 MME/Day ??hydrocodone 10 mg-acetaminophen 325 mg tablet ??1 tabPOQ4-6HPRNpain#150 tabs 60 MME/Day ??hydrocodone 10 mg-acetaminophen 325 mg tablet ??1 tabPOQ4-6HPRNpain#150 tabs 60 MME/Day ??hydrocortisone 1 % topical cream ??1 applictopicalBIDPRN ??hydrocortisone acetate 25 mg rectal suppository ??25 mgPRBIDPRN ??lisinopril 10 mg tablet ??10 mgPODAILY#30 tabs ??mupirocin 2 % topical ointment ??See Rx Instructions ??pool therapy ??See Rx Instructions ??pseudoephedrine HCl 60 mg tablet ??30 mgPO.4 times dailyPRN DME/Medical Supplies ??Disabled Parking Permit ?Not Included in Conflicts Allergies eszopiclone (From Lunesta) sedated NSAIDS (Non-Steroidal Anti-Inflamma zolpidem (From Ambien) sleep walking and eating Problems ? ONSET Small bowel obstruction Obesity (BMI 30.0-34.9) Chronic, continuous use of opioids Chronic low back pain Essential hypertension Facet arthropathy, lumbar Vision disorder Cervical spine disease ~1999 Hearing loss ~2000 Ankle and/or foot joint stiffness Insomnia 07/25/15 Vital Signs Today 03:00 BP 139/90? Diagnostics Reports Harmeet Martinez??61??M??1960 ? Allergy/Adv: eszopiclone, NSAIDS (Non-Steroidal Anti-Inflamma, zolpidem (More??) Close Abdomen/Pelvis CT (Signed) Freddy Bullock - 01/05/22 Chest/Abdomen X-ray (Signed) Freddy Bullokc - 01/04/22 Lumbar Spine MRI (Signed) Demetrio Quijano - 09/08/21 Lumbar Spine X-Ray (Signed) Valdemar Main - 02/10/21 Lumbar Spine X-Ray (Signed) Peyton Trujillo - 09/27/19 Launch?[address] [address] XRay Report Signed Patient: Harmeet Martinez MR#: [id number] : 1960 Acct:[id number] Age/Sex: 61 / M Date of Service: 01/04/22 Loc: ED Accession Number: [id number] ?? Procedure: XR acute abdomen series Ordering Provider: Sandoval Jane D.O. PROCEDURE:? XR ACUTE ABDOMEN SERIES ? INDICATIONS:? abdominal pain ? TECHNIQUE:? One view chest and two views of the abdomen were acquired.? ? COMPARISON:? None. ? FINDINGS:? ? Surgical changes and devices:? None.? ? Chest:? Lungs are clear.? Heart size is normal.? No pleural effusions.? No pneumoperitoneum.? ? Abdomen:? Bowel gas pattern demonstrates mild gaseous distention of the transverse colon with a few air-fluid levels in the left upper quadrant.? No suspicious calcifications.? ? Bones:? No suspicious bony lesions.? ? IMPRESSION:? ? 1. Nonspecific bowel gas pattern with mild gas distention of the transverse colon with associated air-fluid levels.? Recommend correlation with subsequent CT.? ? ? Dictated by: Freddy Bullock M.D. on 01/05/2022 at 1:55 ? ? Approved by: Freddy Bullock M.D. on 01/05/2022 at 1:56 CT scan - abdomen/pelvis: Radiologist's Impression: [place] [address] CT Scan Report Signed Patient: Harmeet Martinez MR#: [id number] : 1960 Acct:[id number] Age/Sex: 61 / M Date of Service: 01/05/22 Loc: ED Accession Number: [id number] ?? Procedure: CT abdomen pelvis w con Ordering Provider: Sandoval Jane D.O. PROCEDURE:? CT ABDOMEN PELVIS W CON ? INDICATIONS:? severe abdominal pain, SBO ? TECHNIQUE:? After the administration of IV contrast, axial sections were acquired from the lung bases to the pubic symphysis.? Coronal and sagittal reformats were performed.? For radiation dose reduction, the following was used:? automated exposure control, adjustment of mA and/or kV according to patient size. ? COMPARISON:? [facility], CR, XR ACUTE ABDOMEN SERIES, 01/04/2022, 23:11. ? FINDINGS:? Image quality:? Excellent.? ? Lung bases:? There is mild dependent atelectasis bilaterally.? ? Heart:? Heart is normal in size. ? ? ABDOMEN: Liver:? No mass lesion. Gallbladder:? Within normal limits without calcified gallstones.? ? Biliary ducts:? No biliary ductal dilatation.? ? Pancreas:? Unremarkable.? ? Spleen:? Normal in size.? ? Adrenal Glands:? No adrenal nodules.? ? Kidneys and Ureters:? No hydronephrosis.? ? ? Stomach and Bowel:? There is a nasogastric tube extending to the gastroesophageal junction.? Stomach and small bowel loops appear normal in caliber and wall thickness.? There is segmental wall thickening within the ascending colon with luminal narrowing suspicious for an intramural mass.? There is associated minimal pericolonic fat stranding without pericolonic invasion.? Distally, there is mild segmental colonic wall thickening within the descending and sigmoid colon extending to the rectum with mild pericolonic fat stranding consistent with a colitis.? Peritoneum:? No abnormal intraperitoneal fluid.? No free air.? ? Ventral Wall: ? No hernia.? Abdominal Nodes:? No retroperitoneal or mesenteric adenopathy by size criteria.? Vessels:? Aorta and inferior vena cava are normal in size.? ? PELVIS: Pelvic Organs:? Unremarkable.? ? Bladder:? Unremarkable.? ? Pelvic Nodes: No enlarged lymph nodes.? Miscellaneous: No inguinal hernias are seen. ? ? ? Bones:? Visualized osseous structures demonstrate no suspicious focal lesions. ? ? IMPRESSION:? ? 1. Segmental wall thickening and luminal narrowing within the ascending colon suspicious for an intramural mass and suggestive of colon cancer.? Recommend correlation with colonoscopy. ? 2. Mild segmental wall thickening with pericolonic fat stranding in the descending and sigmoid colon consistent with a nonspecific infectious or inflammatory colitis. ? 3. Nasogastric tube extends to the gastroesophageal junction.? Consider further advancement into the stomach. ? ? Dictated by: Freddy Bullock M.D. on 01/05/2022 at 1:43 ? ? Approved by: Freddy Bullock M.D. on 01/05/2022 at 1:48 ? [facility] Narrative Medical decision making narrative: Patient presents with severe abdominal pain, persistent nausea and vomiting, requiring multiple doses the pain medications and anti medics. X-ray with multiple air-fluid levels concerning for bowel obstruction, CT demonstrates narrowing and concern for mass in the ascending colon. Patient requires hospitalization due to clinical obstruction, intractable pain and inability to tolerate orals. Discharge Plan Departure Patient Disposition: Admitted As Inpatient Clinical Impression: Small bowel obstruction Admit Date/Time: 01/05/22 03:02 Admit Provider: Ramesh Mott
--- NOTE | 2022-01-05 03:10 | PC.NURSE ---
He was adamant that his NG tube be removed,DR Jane notified and gave verbal order to remove the NG tube which I did.
--- NOTE | 2022-01-05 07:32 | PC.NURSE ---
Assumed care of pt @ [id number]. Pt states he's had 2 BM in the past 1 hr, both are loose with sense of urgency. Pt states he takes two 10/325 hydrocodone tabs at 6a/12p/6p daily, Dr. Moreno manages pts pain contract.
[2022-01-05] MEDS: MORPHINE 4 MG/ML INJ IV (08:53)
--- NOTE | 2022-01-05 12:23 | PC.NURSE ---
given food upon request.
== END 2022-01-05 12:23 | disposition admitted as inpatient to this hospital (09) ==
LOC: ED 01-05 02:58 → AC 01-05 08:06
PROVIDERS: Emergency Provider Emergency Medicine; Family Provider Family Medicine; PCP Internal Medicine; Referring Provider Emergency Medicine
DX: K56.609 Unspecified intestinal obstruction, unspecified as to partial versus complete obstruction (principal); R11.2 Nausea with vomiting, unspecified; Z20.822 Contact with and (suspected) exposure to COVID-19
CPT/HCPCS: 36415; 74022; 74177; 80053; 83690; 85025; 87635; 93005; 96374; 96375; 99284; C9803; J1170; J2250; J2270; Q9967

== ENCOUNTER 2022-07-09 08:40 | Emergency (ER) | payer MEDICAID, SELFPAY ==
[2022-07-09 08:45] VITALS: PULSE 92; RESP 16; TEMP 36.9; O2SAT 94; BMI 26.5
--- NOTE | 2022-07-09 08:48 | DI.RAD.S_ITS ---
PROCEDURE: XR FOOT LT MIN 3V INDICATIONS: swollen, fell out of bed TECHNIQUE: 3 views of the foot were acquired. COMPARISON: [facility], , FOOT 3V RIGHT, 07/13/2016, 14:43. FINDINGS: Bones: Three views of the left foot show no fracture or dislocation. No significant degenerative changes. Calcaneal spurring is seen on the plantar side. Soft tissues: No tibiotalar joint effusion. Achilles tendon appears normal. IMPRESSION: No acute abnormality of the left foot. Dictated by: Manoj Brown M.D. on 07/09/2022 at 9:07 Approved by: Manoj Brown M.D. on 07/09/2022 at 9:10
--- NOTE | 2022-07-09 11:09 | DI.RAD.S_ITS ---
PROCEDURE: XR ANKLE LT MIN 3V INDICATIONS: pain TECHNIQUE: 3 views of the ankle were acquired. COMPARISON: formerly [facility], ANKLE 3 VIEWS LEFT, 07/13/2016, 14:43. formerly [facility], ANKLE 3 VIEWS RIGHT, 07/13/2016, 14:43. FINDINGS: Bones: No fractures or dislocations. Ankle mortise is normally aligned. No suspicious bony lesions. The ankle mortise is normally aligned. Lucent areas of the talar dome and the tibial plafond laterally are consistent with possible osteochondral defects are seen. These are similar compared to a prior study in 2017. Soft tissues: No tibiotalar joint effusion. Achilles tendon appears normal. IMPRESSION: 1. No acute abnormality of the left ankle 2. Subchondral lucencies as above. Possibly osteochondral defects. Consider MRI if pain is on going. Dictated by: Manoj Brown M.D. on 07/09/2022 at 12:14 Approved by: Manoj Brown M.D. on 07/09/2022 at 12:18
--- NOTE | 2022-07-09 11:55 | ED.LOWEXIN ---
HPI - Extremity Injury (Lower) General Chief Complaint: Extremity Injury, Lower Stated Complaint: left foot injury/broken? Time Seen by Provider: 07/09/22 11:20 History of Present Illness HPI Narrative: 62-year-old male nonsmoker with history of bowel obstruction presents with a chief complaint of left ankle injury suffered 2 days ago. He has a previously injured left ankle and states that he fell awkwardly off the bed and landed on his left foot and ankle and has pain, swelling and redness. His pain is worse with palpation and attempts at ambulation. Denies any knee or hip pain but does have pain a bit proximal to his ankle. Denies numbness, tingling or weakness. Related Data Previous Rx's Medication Instructions Recorded Disabled Parking Permit #1 ea 02/10/21 pool therapy See Rx Instructions .Route 11/06/21 .COMPLEX #90 units docusate sodium 100 mg capsule 100 mg PO QID PRN constipation 01/22/22 #360 caps hydrocortisone 1 % topical cream 1 applic topical BID PRN itching 01/22/22 (Cortisone (hydrocortisone)) #28.4 grams lisinopril 5 mg tablet 5 mg PO DAILY #90 tabs 01/22/22 carisoprodol 350 mg tablet 350 mg PO QID PRN muscle pain #360 05/27/22 tabs hydrocodone 10 mg-acetaminophen 1 tab PO Q4-6H PRN pain #240 tabs 06/24/22 325 mg tablet hydrocodone 10 mg-acetaminophen 1 tab PO Q4-6H PRN pain #248 tabs 06/24/22 325 mg tablet hydrocodone 10 mg-acetaminophen 1 tab PO Q4-6H PRN pain #248 tabs 06/24/22 325 mg tablet mupirocin 2 % topical ointment See Rx Instructions .Route 06/25/22 .COMPLEX #22 grams hydrocodone 5 mg-acetaminophen 325 1 tab PO Q4-6H PRN pain #10 tabs 07/09/22 mg tablet Allergies Allergy/AdvReac Type Severity Reaction Status Date / Time eszopiclone [From Lunesta] AdvReac Severe sedated Verified 06/24/22 13:16 NSAIDS (Non-Steroidal AdvReac Unknown Verified 06/24/22 13:16 Anti-Inflamma zolpidem [From Ambien] AdvReac sleep Verified 06/24/22 13:16 walking and eating Review of Systems Review of Systems Narrative: GENERAL: Denies chills, fatigue, malaise, fever, sweats. HEENT: Denies sinus pain, ear pain, sore throat, difficulty swallowing, dizziness. RESPIRATORY: Denies dyspnea, cough, wheezing, hemoptysis, sputum. CARDIOVASCULAR: Denies chest pain, palpitations, orthopnea, edema, GASTROINTESTINAL: Denies nausea, vomiting, abdominal pain, diarrhea, constipation, melena. : Denies dysuria, frequency, incontinence, hematuria, urinary retention. MUSCULOSKELETAL: See HPI SKIN: Denies rash, skin lesions, or other NEUROLOGIC: See HPI PSYCHIATRIC: No concerning psychosocial issues. 12 point review of systems is negative except for those stated above Patient History Medical History Abnormal CT of the abdomen Ankle pain (1993) Cervical spine disease (~1999) Chronic back pain (1993) Chronic low back pain Chronic, continuous use of opioids Encounter for general adult medical examination without abnormal findings Essential hypertension Facet arthropathy, lumbar Foot pain (1993) Fractures (~2004) Hearing loss (~2000) Hemorrhoid (~1969) Migraines (~1999) Mixed hyperlipidemia Neck pain (Unknown) Overweight Strain of left upper arm Tinnitus (~2000) Surgical History History of surgery on arm (12/2015) Status post appendectomy Status post discectomy Status post discectomy Family History Mother Age: 82 Diabetes mellitus Father No problems noted. 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 Well-developed patient, in mild distress. HEAD: Atraumatic. Normocephalic. EYES: Pupils equal round and reactive. Extraocular motions intact. No scleral icterus. No injection or drainage. ENT: Nose without bleeding, purulent drainage. Throat without erythema, tonsillar hypertrophy or exudate. Airway patent. NECK: Trachea midline. Non tender CARDIOVASCULAR: Regular rate and rhythm without murmurs, gallops, or rubs. RESPIRATORY: Clear to auscultation. Breath sounds equal bilaterally. No wheezes, rales, or rhonchi. GASTROINTESTINAL: Abdomen soft, non-tender, nondistended. EXTREMITIES: Decreased range of motion secondary to pain with moderate edema and erythema overlying bilateral malleoli, there is some pain with squeeze test. Compartments are soft. This injury is closed, isolated and neurovascularly intact BACK: Nontender without deformity or crepitance. No flank tenderness. NEURO: AOx3. SKIN: No rash or erythema of visible areas Initial Vital Signs Initial Vital Signs: Vital Signs Temperature 98.4 F 07/09/22 08:45 Pulse Rate 92 H 07/09/22 08:45 Respiratory Rate 16 07/09/22 08:45 Pulse Oximetry 94 07/09/22 08:45 Oxygen Delivery Method 07/09/22 08:45 Procedures Orthopedic Splinting/Casting Injury #1: Side: left Lower Extremity Injury Location: ankle Lower Extremity Immobilizer: stirrup splint Other Orthopedic Equipment: crutches Post splinting neuro exam: intact Post splinting vascular exam: intact Course Orders Ordered: Discontinued Medications Ketorolac Tromethamine (Ketorolac 30 Mg/Ml Vial) 30 mg IM NOW ONE Stop: 07/09/22 12:32 Last Admin: 07/09/22 12:53 Dose: 30 mg Documented By: CTS Vital Signs Vital signs: Vital Signs - 8 hr 07/09/22 08:45 Temperature 98.4 F Pulse Rate 92 H Respiratory Rate 16 Pulse Oximetry 94 Oxygen Delivery Method Room Air MDM - Extremity Injury (Lower) Imaging Data Extremity x-ray #1: Radiologist's Impression: [address] [address] XRay Report Signed Patient: Harmeet Martinez MR#: [id number] : 1960 Acct:[id number] Age/Sex: 62 / M Date of Service: 07/09/22 Loc: ED Accession Number: [id number] ?? Procedure: XR ankle LT min 3V Ordering Provider: Sandoval Jane D.O. PROCEDURE:? XR ANKLE LT MIN 3V ? INDICATIONS:? pain ? TECHNIQUE:? 3 views of the ankle were acquired.? ? COMPARISON:? [facility], , ANKLE 3 VIEWS LEFT, 07/13/2016, 14:43.? [facility], , ANKLE 3 VIEWS RIGHT, 07/13/2016, 14:43. ? FINDINGS:? ? Bones:? No fractures or dislocations.? Ankle mortise is normally aligned.? No suspicious bony lesions.? The ankle mortise is normally aligned.? Lucent areas of the talar dome and the tibial plafond laterally are consistent with possible osteochondral defects are seen. ?These are similar compared to a prior study in 2017. ? Soft tissues:? No tibiotalar joint effusion.? Achilles tendon appears normal.? ? ? IMPRESSION:? 1. No acute abnormality of the left ankle 2. Subchondral lucencies as above.? Possibly osteochondral defects.? Consider MRI if pain is on going.? Dictated by: Manoj Brown M.D. on 07/09/2022 at 12:14 ? ? MDM Narrative Medical decision making narrative: 62-year-old male with low risk ankle injury Multiple etiologies for patient's symptoms considered including, but not limited to: [Fracture, sprain, ankle sprain versus other] Imaging reviewed: No acute fracture or dislocation of foot or ankle Patient does have pain on squeeze test raising the suspicion of a possible syndesmotic lesion, patient splinted, given crutches, encouraged nonweightbearing Patient's symptoms improved over duration of stay with above-stated therapies. Findings and discharge diagnosis discussed with patient/family followed by verbalization of understanding Return precautions discussed with patient/family whom verbalize understanding of diagnosis and plan Discharge Plan Departure Patient Disposition: Home Clinical Impression: Sprain of ankle Instructions: DI for Ankle Sprain Activity Restrictions/Additional Instructions: *You have been diagnosed with [left ankle sprain, possible syndesmotic lesion] *What to do: *Please continue to take your regular medications as directed. [ ] New medication prescriptions sent to your pharmacy: [ ] [ ] New medication written as a paper prescription [x] Tylenol and occasional Motrin for pain *Please follow up with [Naz ] of [facility] in 2-3 days, call for an appointment. Let them know you were seen in the Emergency Department and that we ask that you be seen in follow up. We will electronically transmit a record of today's note if your PCP is in our system *Return to Emergency Department if you should have any new, worsening or concerning symptoms, such as [worsening pain, significant swelling, cold extremities, numbness, tingling, weakness or other bothersome symptoms Splint Care: Keep splint clean and dry. Elevated affected body part to decrease swelling. OK to use ice pack on the affected body part. Use for 15-20 minutes each time, for 5-6x per day. If you develop worsening pain, numbness, tingling, discoloration of the affected body part, loosen the splint by loosening the SINDY wrap, and either see your doctor for an urgent re-assessment, or return to the Emergency Department. Return to the Emergency Department for any new or worsening symptoms. Prescriptions: New hydrocodone-acetaminophen 5-325 mg tablet 1 tab PO Q4-6H PRN (Reason: pain) Qty: 10 0RF No Action mupirocin 2 % ointment See Rx Instructions .ROUTE .COMPLEX Qty: 22 2RF Dose Instruction: apply topically to affected area(s) twice daily Rx Instructions: apply topically to affected area(s) twice daily (DME) Disabled Parking Permit See Rx Instructions .ROUTE .MEDSUPPLY Qty: 1 0RF Rx Instructions: Valid for 5 years pool therapy See Rx Instructions .ROUTE .COMPLEX Qty: 90 3RF Rx Instructions: daily for chronic low back pain (ICD10 M54.5) lisinopril 5 mg tablet 5 mg PO DAILY Qty: 90 3RF docusate sodium 100 mg capsule 100 mg PO QID PRN (Reason: constipation) Qty: 360 2RF Rx Instructions: Take 1-4 capsules as needed for constipation hydrocortisone [Cortisone (hydrocortisone)] 1 % cream 1 applic topical BID PRN (Reason: itching) Qty: 28.4 11RF carisoprodol 350 mg tablet 350 mg PO QID PRN (Reason: muscle pain) Qty: 360 1RF hydrocodone-acetaminophen 10-325 mg tablet 1 tab PO Q4-6H PRN (Reason: pain) Qty: 248 0RF hydrocodone-acetaminophen 10-325 mg tablet 1 tab PO Q4-6H PRN (Reason: pain) Qty: 248 0RF hydrocodone-acetaminophen 10-325 mg tablet 1 tab PO Q4-6H PRN (Reason: pain) Qty: 240 0RF Rx Instructions: increased to #180 Referrals: Vishal Goncalves MD [Primary Care Provider] - Henry Childs MD [Physician] -
[2022-07-09] MEDS: KETOROLAC 30 MG/ML VIAL IM (12:53)
== END 2022-07-09 13:35 | disposition home or self-care (01) ==
PROVIDERS: Emergency Provider Emergency Medicine; Family Provider Family Medicine; PCP Internal Medicine
DX: S93.402A Sprain of unspecified ligament of left ankle, initial encounter (principal); W06.XXXA Fall from bed, initial encounter
CPT/HCPCS: 29515; 73610; 73630; 96372; 99283; 99284; J1885

== ENCOUNTER → 2022-08-06 11:17 | Outpatient (CLI) | payer MEDICAID, SELFPAY ==
--- NOTE | 2022-08-06 | DI.CT.S_ITS ---
PROCEDURE: CT LE LT W CON INDICATIONS: Post-traumatic osteoarthritis, left ankle and foot TECHNIQUE: Noncontrast 1-1.5 mm axial sections acquired from above the tibiotalar joint to the bottom of the calcaneus, with coronal and sagittal reformats. COMPARISON: [facility], CR, XR ANKLE LT MIN 3V, 07/09/2022, 11:42. [facility], CR, XR ANKLE 3 VIEWS WEIGHT BEARING LEFT, 07/27/2022, 14:36. FINDINGS: Image quality: Excellent. Bones: Moderate osteoarthritic changes are seen in tibiotalar joint with significant joint space narrowing, subchondral sclerosis and small to moderate size marginal osteophyte formation. Subcortical cystic areas are noted involving anterior aspect of distal tibial plafond. Multiple subcortical cystic areas also noted involving posterior and lateral periphery of talar dome weight-bearing portion concerning for osteochondral injuries. [id number] osteoarthritic changes also noted throughout rest of the midfoot and hindfoot more notably in talonavicular joint and subtalar joint. No suspicious bony lesions. No acute fracture or dislocation. Tiny plantar and dorsal calcaneal enthesophytes are seen. Soft tissues: No significant joint effusion is seen. No gross intra-articular loose bodies. No abnormal soft tissue calcifications. There is no full-thickness extensor, flexor, or peroneus tendon rupture. Achilles tendon is intact. Visualized plantar fascia is within normal limits. No soft tissue mass or discrete drainable fluid collection. IMPRESSION: 1. Moderate tibiotalar joint osteoarthritis with suggestion of multiple osteochondral injuries as described above. [id number] osteoarthritic changes throughout rest of the left foot . No suspicious intraosseous lesion. No acute fracture or dislocation. 2. No soft tissue mass or discrete drainable fluid collection. No abnormal soft tissue calcifications. Small tibiotalar joint effusion, no gross loose bodies. No gross full-thickness tendon rupture. Dictated by: Gigi Beaulieu M.D. on 08/06/2022 at 12:26 Approved by: Gigi Beaulieu M.D. on 08/06/2022 at 12:56
== END ==
PROVIDERS: Family Provider Family Medicine; PCP Internal Medicine; Referring Provider Orthopaedic Surgery Foot and Ankle Surgery; Visit Provider Orthopaedic Surgery Foot and Ankle Surgery
DX: M19.172 Post-traumatic osteoarthritis, left ankle and foot (principal)
CPT/HCPCS: 73700

== ENCOUNTER 2022-08-23 00:22 | Emergency (ER) | payer MEDICAID, SELFPAY ==
[2022-08-23 00:33] VITALS: BP 152/106; PULSE 88; RESP 16; TEMP 36.2; O2SAT 97; BMI 29.5
--- NOTE | 2022-08-23 00:36 | ED.RECABL ---
HPI - Recheck/Abnormal Lab/Rx General Chief Complaint: Recheck/Abnormal Lab/Rx Stated Complaint: here for a shot doesnt know name of it Time Seen by Provider: 08/23/22 00:23 Source: patient Mode of arrival: Ambulatory Limitations: no limitations History of Present Illness HPI narrative: Patient is a 62-year-old male who is here in the emergency department initially for a shot that he did not know the name of but turns out that it is a Toradol shot. He has a history of chronic pain to include his neck and back ankles. Is seen by his primary doctor and also Orthopedics for this. 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 He is not had pain medicine for the past couple days states that only wants a shot of Toradol. Is discomfort that he is having is not new. Related Data Previous Rx's Medication Instructions Recorded Disabled Parking Permit #1 ea 02/10/21 pool therapy See Rx Instructions .Route 11/06/21 .COMPLEX #90 units docusate sodium 100 mg capsule 100 mg PO QID PRN constipation 01/22/22 #360 caps hydrocortisone 1 % topical cream 1 applic topical BID PRN itching 01/22/22 (Cortisone (hydrocortisone)) #28.4 grams lisinopril 5 mg tablet 5 mg PO DAILY #90 tabs 01/22/22 carisoprodol 350 mg tablet 350 mg PO QID PRN muscle pain #360 05/27/22 tabs mupirocin 2 % topical ointment See Rx Instructions .Route 06/25/22 .COMPLEX #22 grams diazepam 5 mg tablet 5 mg PO ONCE PRN anxiety #4 tabs 07/30/22 hydrocodone 10 mg-acetaminophen 1 tab PO Q4-6H PRN pain #60 tabs 08/16/22 325 mg tablet hydrocodone 10 mg-acetaminophen 1 tab PO Q4-6H PRN pain #60 tabs 08/16/22 325 mg tablet hydrocodone 10 mg-acetaminophen 1 tab PO Q4-6H PRN pain #60 tabs 08/16/22 325 mg tablet morphine 30 mg capsule,extended 30 mg PO TID #90 caps 08/16/22 release 24 hr multiphase morphine 30 mg capsule,extended 30 mg PO TID #90 caps 08/16/22 release 24 hr multiphase morphine 30 mg capsule,extended 30 mg PO TID #90 caps 08/16/22 release 24 hr multiphase Allergies Allergy/AdvReac Type Severity Reaction Status Date / Time eszopiclone [From Lunesta] AdvReac Severe sedated Verified 08/23/22 00:33 NSAIDS (Non-Steroidal AdvReac Unknown Verified 08/23/22 00:33 Anti-Inflamma zolpidem [From Ambien] AdvReac sleep Verified 08/23/22 00:33 walking and eating Review of Systems Constitutional Constitutional: Reports system reviewed and no additional complaints, except as documented Musculoskeletal Musculoskeletal: Reports system reviewed and no additional complaints, except as documented Neurologic Neurologic: Reports system reviewed and no additional complaints, except as documented Patient History Medical History Abnormal CT of the abdomen Ankle pain (1993) Cervical spine disease (~1999) Chronic back pain (1993) Chronic low back pain Chronic, continuous use of opioids Encounter for general adult medical examination without abnormal findings Essential hypertension Facet arthropathy, lumbar Foot pain (1993) Fractures (~2004) Hearing loss (~2000) Hemorrhoid (~1969) Migraines (~1999) Mixed hyperlipidemia Neck pain (Unknown) Overweight Strain of left upper arm Tinnitus (~2000) Surgical History History of surgery on arm (12/2015) Status post appendectomy Status post discectomy Status post discectomy Family History Mother Age: 82 Diabetes mellitus Father No problems noted. 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 Smoking Status: Never smoker alcohol intake: never Smoking Status: Never smoker alcohol intake frequency: holidays/special occasions only Substance Use Type: does not use Exam Initial Vital Signs Initial Vital Signs: Vital Signs Temperature 97.2 F L 08/23/22 00:33 Pulse Rate 88 08/23/22 00:33 Respiratory Rate 16 08/23/22 00:33 Blood Pressure 152/106 H 08/23/22 00:33 Pulse Oximetry 97 08/23/22 00:33 Oxygen Delivery Method 08/23/22 00:33 HENMT Head: normal to inspection Resp Effort & Inspection: normal respiratory effort Cardio Rate: regular rate Neuro General: patient alert, patient awake and moves all extremities Speech: speech normal Gait: normal gait Course Orders Ordered: Discontinued Medications Diphenhydramine HCl (Diphenhydramine 25 Mg Tablet) 25 mg PO NOW ONE Stop: 08/23/22 00:36 Ketorolac Tromethamine (Ketorolac 30 Mg/Ml Vial) 30 mg IM NOW ONE Stop: 08/23/22 00:33 Vital Signs Vital signs: Vital Signs - 8 hr 08/23/22 00:33 Temperature 97.2 F L Pulse Rate 88 Respiratory Rate 16 Blood Pressure 152/106 H Pulse Oximetry 97 Oxygen Delivery Method Room Air MDM - Recheck/Abnormal Lab/Rx MDM Narrative Medical decision making narrative: Patient states he can not take oral nonsteroidal anti-inflammatories. He has had Toradol in the past and is asking for a Toradol shot. It discomfort that he is having is not new. There has been no new injuries. He just has not had any of his medications in the past several days. 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 Patient was given a shot of Toradol and an oral Benadryl for sleep. Will discharge home. Discharge Plan Departure Patient Disposition: Home Clinical Impression: Chronic low back pain Activity Restrictions/Additional Instructions: I recommend that you continue take all of your medications as directed and contact your primary doctor for a follow-up. Prescriptions: No Action mupirocin 2 % ointment See Rx Instructions .ROUTE .COMPLEX Qty: 22 2RF Dose Instruction: apply topically to affected area(s) twice daily Rx Instructions: apply topically to affected area(s) twice daily diazepam 5 mg tablet 5 mg PO ONCE PRN (Reason: anxiety) Qty: 4 1RF Rx Instructions: to use flying trips (DME) Disabled Parking Permit See Rx Instructions .ROUTE .MEDSUPPLY Qty: 1 0RF Rx Instructions: Valid for 5 years pool therapy See Rx Instructions .ROUTE .COMPLEX Qty: 90 3RF Rx Instructions: daily for chronic low back pain (ICD10 M54.5) lisinopril 5 mg tablet 5 mg PO DAILY Qty: 90 3RF docusate sodium 100 mg capsule 100 mg PO QID PRN (Reason: constipation) Qty: 360 2RF Rx Instructions: Take 1-4 capsules as needed for constipation hydrocortisone [Cortisone (hydrocortisone)] 1 % cream 1 applic topical BID PRN (Reason: itching) Qty: 28.4 11RF carisoprodol 350 mg tablet 350 mg PO QID PRN (Reason: muscle pain) Qty: 360 1RF hydrocodone-acetaminophen 10-325 mg tablet 1 tab PO Q4-6H PRN (Reason: pain) Qty: 60 0RF hydrocodone-acetaminophen 10-325 mg tablet 1 tab PO Q4-6H PRN (Reason: pain) Qty: 60 0RF Rx Instructions: increased to #180 morphine 30 mg capsule, ER multiphase 24 hr 30 mg PO TID Qty: 90 0RF morphine 30 mg capsule, ER multiphase 24 hr 30 mg PO TID Qty: 90 0RF morphine 30 mg capsule, ER multiphase 24 hr 30 mg PO TID Qty: 90 0RF hydrocodone-acetaminophen 10-325 mg tablet 1 tab PO Q4-6H PRN (Reason: pain) Qty: 60 0RF Referrals: Vishal Goncalves MD [Primary Care Provider] - Stand Alone Forms: Patient Portal/API
[2022-08-23] MEDS: KETOROLAC 30 MG/ML VIAL IM (00:42)
[2022-08-23] MEDS: diphenhydrAMINE 25 MG TABLET PO (00:42)
== END 2022-08-23 00:46 | disposition home or self-care (01) ==
PROVIDERS: Emergency Provider Emergency Medicine; Family Provider Family Medicine; PCP Internal Medicine
DX: M54.50 Low back pain, unspecified (principal)
CPT/HCPCS: 96372; 99283; J1885

== ENCOUNTER 2022-08-23 02:42 | Emergency (ER) | payer MEDICAID, SELFPAY ==
[2022-08-23] VITALS (7 sets, daily range): BP systolic 136–174; BP diastolic 76–103; PULSE 69–84; RESP 18; TEMP 37.2; O2SAT 96–99
--- NOTE | 2022-08-23 02:55 | ED_ITS ---
HPI - General Adult General Chief complaint: Headache Stated complaint: vomiting, head hurts, cant get warm Time Seen by Provider: 08/23/22 02:43 Source: patient Mode of arrival: Ambulatory Limitations: no limitations History of Present Illness HPI narrative: Patient is a 62-year-old male who I evaluated earlier this evening in the emergency department for lower back pain. This was chronic lower back pain. He was asking for a Toradol shot. He returns to the emergency department with headache. States that he can not get warm. Is still having back pain. No fevers. He does get headaches but they are very infrequent. Describes it as both sides of his head and sharp. Is also in the front. Has not tried anything for the symptoms prior to arrival Related Data Previous Rx's Medication Instructions Recorded Disabled Parking Permit #1 ea 02/10/21 pool therapy See Rx Instructions .Route 11/06/21 .COMPLEX #90 units docusate sodium 100 mg capsule 100 mg PO QID PRN constipation 01/22/22 #360 caps hydrocortisone 1 % topical cream 1 applic topical BID PRN itching 01/22/22 (Cortisone (hydrocortisone)) #28.4 grams lisinopril 5 mg tablet 5 mg PO DAILY #90 tabs 01/22/22 carisoprodol 350 mg tablet 350 mg PO QID PRN muscle pain #360 05/27/22 tabs mupirocin 2 % topical ointment See Rx Instructions .Route 06/25/22 .COMPLEX #22 grams diazepam 5 mg tablet 5 mg PO ONCE PRN anxiety #4 tabs 07/30/22 hydrocodone 10 mg-acetaminophen 1 tab PO Q4-6H PRN pain #60 tabs 08/16/22 325 mg tablet hydrocodone 10 mg-acetaminophen 1 tab PO Q4-6H PRN pain #60 tabs 08/16/22 325 mg tablet hydrocodone 10 mg-acetaminophen 1 tab PO Q4-6H PRN pain #60 tabs 08/16/22 325 mg tablet morphine 30 mg capsule,extended 30 mg PO TID #90 caps 08/16/22 release 24 hr multiphase morphine 30 mg capsule,extended 30 mg PO TID #90 caps 08/16/22 release 24 hr multiphase morphine 30 mg capsule,extended 30 mg PO TID #90 caps 08/16/22 release 24 hr multiphase Allergies Allergy/AdvReac Type Severity Reaction Status Date / Time eszopiclone [From Lunesta] AdvReac Severe sedated Verified 08/23/22 00:33 NSAIDS (Non-Steroidal AdvReac Unknown Verified 08/23/22 00:33 Anti-Inflamma zolpidem [From Ambien] AdvReac sleep Verified 08/23/22 00:33 walking and eating Review of Systems Constitutional Constitutional: Reports system reviewed and no additional complaints, except as documented ENT Ears, Nose, Mouth, and Throat: Reports system reviewed and no additional complaints, except as documented Respiratory Respiratory: Reports system reviewed and no additional complaints, except as documented Neurologic Neurologic: Reports system reviewed and no additional complaints, except as documented Hematologic/Lymphatic On Anticoagulants: No Patient History Medical History Abnormal CT of the abdomen Ankle pain (1993) Cervical spine disease (~1999) Chronic back pain (1993) Chronic low back pain Chronic, continuous use of opioids Encounter for general adult medical examination without abnormal findings Essential hypertension Facet arthropathy, lumbar Foot pain (1993) Fractures (~2004) Hearing loss (~2000) Hemorrhoid (~1969) Migraines (~1999) Mixed hyperlipidemia Neck pain (Unknown) Overweight Strain of left upper arm Tinnitus (~2000) Surgical History History of surgery on arm (12/2015) Status post appendectomy Status post discectomy Status post discectomy Family History Mother Age: 82 Diabetes mellitus Father No problems noted. 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 Smoking Status: Never smoker alcohol intake: never Smoking Status: Never smoker alcohol intake frequency: holidays/special occasions only Substance Use Type: does not use Exam Initial Vital Signs Initial Vital Signs: Vital Signs Temperature 99 F 08/23/22 02:54 Pulse Rate 79 08/23/22 02:54 Respiratory Rate 18 08/23/22 02:54 Blood Pressure 174/103 H 08/23/22 02:54 Pulse Oximetry 97 08/23/22 02:54 Oxygen Delivery Method 08/23/22 02:54 [facility] Head: normal to inspection Resp Effort & Inspection: normal respiratory effort Cardio Rate: regular rate Skin General: no rashes or lesions noted Neuro General: patient alert, patient awake, patient oriented x3 and moves all extremities Gait: normal gait Extrem General: normal to inspection Course Orders Ordered: ED Orders 08/23/22 03:15 Basic Metabolic Panel Stat Complete Blood Count AUTO DIFF Stat Covid-19 + FLU A/B + RSV - PCR Stat Discontinued Medications Diphenhydramine HCl (Diphenhydramine 50 Mg/Ml Vial) 25 mg IV NOW ONE Stop: 08/23/22 02:56 Last Admin: 08/23/22 03:23 Dose: 25 mg Documented By: TRUPTI Sodium Chloride (Normal Saline 0.9%) 1,000 mls @ 1,000 mls/hr IV BOLUS ONE Stop: 08/23/22 03:54 Last Infusion: 08/23/22 04:09 Dose: 0 mls/hr Documented By: Admin: 08/23/22 03:26 Dose: 1,000 mls/hr Documented By: TRUPTI Metoclopramide HCl (Metoclopramide 10 Mg/2 Ml Inj) 10 mg IV NOW ONE Stop: 08/23/22 02:56 Last Admin: 08/23/22 03:26 Dose: 10 mg Documented By: TRUPTI Morphine Sulfate (Morphine 4 Mg/Ml Inj) 4 mg IV NOW ONE Stop: 08/23/22 04:10 Last Admin: 08/23/22 04:17 Dose: 4 mg Documented By: TRUPTI Vital Signs Vital signs: Vital Signs - 8 hr 08/23/22 02:54 08/23/22 02:54 08/23/22 03:00 Temperature 99 F Pulse Rate 79 80 84 Respiratory Rate 18 Blood Pressure 174/103 H Pulse Oximetry 97 97 97 Oxygen Delivery Method Room Air 08/23/22 03:01 08/23/22 03:01 08/23/22 03:30 Temperature Pulse Rate 77 Respiratory Rate Blood Pressure 139/83 140/76 Pulse Oximetry 96 Oxygen Delivery Method 08/23/22 03:30 08/23/22 04:00 08/23/22 04:00 Temperature Pulse Rate 69 82 Respiratory Rate Blood Pressure 148/89 H Pulse Oximetry 97 99 Oxygen Delivery Method 08/23/22 04:30 08/23/22 04:30 08/23/22 05:00 Temperature Pulse Rate 75 Respiratory Rate Blood Pressure 149/86 H 136/85 Pulse Oximetry 97 Oxygen Delivery Method 08/23/22 05:00 Temperature Pulse Rate 73 Respiratory Rate Blood Pressure Pulse Oximetry 97 Oxygen Delivery Method Room Air Medical Decision Making Lab Data Lab results reviewed: Yes I reviewed the patient's lab results. 08/23/22 03:15 08/23/22 03:15 Labs: Lab Results 08/23/22 08/23/22 08/23/22 Range/Units 03:15 03:15 03:15 WBC 6.3 (4.5-11.0) X10^3/uL RBC 5.20 (4.5-5.9) X10^6/uL Hgb 14.7 (13.5-17.5) g/dL Hct 42.4 (41-53) % MCV 81.7 (80-100) fL MCH 28.3 (26-34) PG MCHC 34.7 (30-36) % RDW 14.4 (11.6-14.8) % Plt Count 254 (150-400) X10^3/uL Neut % (Auto) 75.9 H (50-75) % Lymph % (Auto) 17.1 L (25-40) % [place] % (Auto) 5.2 (3-14) % Eos % (Auto) 1.2 L (2-4) % Baso % (Auto) 0.6 (0-2) % Neut # (Auto) 4800 (8116-2130) /uL Lymph # (Auto) 1100 (3231-4768) /uL [place] # (Auto) 300 (0-900) /uL Eos # (Auto) 100 (0-450) /uL Baso # (Auto) 0 (0-100) /uL Sodium 139 (137-145) mmol/L Potassium 3.9 (3.4-5.1) mmol/L Chloride 105 (98-107) mmol/L Carbon Dioxide 21 L (22-32) mmol/L BUN 13 (9-20) mg/dL Creatinine 0.79 (0.66-1.25) mg/dL Estimated GFR > 60 (>60) mL/min BUN/Creatinine Ratio 16.5 (6-22) Glucose 109 (80-110) mg/dL Calcium 9.6 (8.4-10.2) mg/dL SARS-CoV-2 (PCR) Negative (Negative) Influenza A (RT-PCR) Flu a negative (NEGATIVE) Influenza B (RT-PCR) Flu b negative (NEGATIVE) RSV (PCR) Negative (Negative) MDM Narrative Medical decision making narrative: Patient initially reported no improvement of symptoms after the Reglan Benadryl. After received morphine he states that his headache was much better. I do susp ect that his symptoms were related to not having pain medication for the past several days which is why he was in the emergency department earlier this evening. I have low suspicion for meningitis. Low suspicion for CVA. Also considered and have low suspicion for infections in his back to include hematoma/abscess. He is had no recent instrumentation. Will discharge patient home as he is going to refill his pain medication later today. He was given return precautions. He expressed understanding and agreement. Discharge Plan Departure Patient Disposition: Home Clinical Impression: Headache Instructions: DI for Headache Activity Restrictions/Additional Instructions: Continue to take all of your medications as directed. Contact your primary doctor for follow-up. Return to emergency department for new symptoms. Prescriptions: No Action mupirocin 2 % ointment See Rx Instructions .ROUTE .COMPLEX Qty: 22 2RF Dose Instruction: apply topically to affected area(s) twice daily Rx Instructions: apply topically to affected area(s) twice daily diazepam 5 mg tablet 5 mg PO ONCE PRN (Reason: anxiety) Qty: 4 1RF Rx Instructions: to use flying trips (DME) Disabled Parking Permit See Rx Instructions .ROUTE .MEDSUPPLY Qty: 1 0RF Rx Instructions: Valid for 5 years pool therapy See Rx Instructions .ROUTE .COMPLEX Qty: 90 3RF Rx Instructions: daily for chronic low back pain (ICD10 M54.5) lisinopril 5 mg tablet 5 mg PO DAILY Qty: 90 3RF docusate sodium 100 mg capsule 100 mg PO QID PRN (Reason: constipation) Qty: 360 2RF Rx Instructions: Take 1-4 capsules as needed for constipation hydrocortisone [Cortisone (hydrocortisone)] 1 % cream 1 applic topical BID PRN (Reason: itching) Qty: 28.4 11RF carisoprodol 350 mg tablet 350 mg PO QID PRN (Reason: muscle pain) Qty: 360 1RF hydrocodone-acetaminophen 10-325 mg tablet 1 tab PO Q4-6H PRN (Reason: pain) Qty: 60 0RF hydrocodone-acetaminophen 10-325 mg tablet 1 tab PO Q4-6H PRN (Reason: pain) Qty: 60 0RF Rx Instructions: increased to #180 morphine 30 mg capsule, ER multiphase 24 hr 30 mg PO TID Qty: 90 0RF morphine 30 mg capsule, ER multiphase 24 hr 30 mg PO TID Qty: 90 0RF morphine 30 mg capsule, ER multiphase 24 hr 30 mg PO TID Qty: 90 0RF hydrocodone-acetaminophen 10-325 mg tablet 1 tab PO Q4-6H PRN (Reason: pain) Qty: 60 0RF Referrals: Vishal Goncalves MD [Primary Care Provider] - Stand Alone Forms: Patient Portal/API
[2022-08-23] MEDS: diphenhydrAMINE 50 MG/ML VIAL 25 MG IV (03:23)
[2022-08-23] MEDS: SODIUM CHLORIDE 0.9% 1,000 ML 1000 ML IV (03:26)
[2022-08-23] MEDS: METOCLOPRAMIDE 10 MG/2 ML INJ IV (03:26)
[2022-08-23 03:29] LABS: Add Manual Diff / Slide Review NO; Basophils Absolute Auto 0 /uL (0-100); Basophils Percent Auto 0.6 % (0-2); Eosinophils Absolute Auto 100 /uL (0-450); Eosinophils Percent Auto 1.2 % (2-4); Hematocrit 42.4 % (41-53); Hemoglobin 14.7 g/dL (13.5-17.5); Lymphocytes Absolute Auto 1100 /uL (1100-4500); Lymphocytes Percent Auto 17.1 % (25-40); Mean Corpuscular HGB Conc 34.7 % (30-36); Mean Corpuscular Hemoglobin 28.3 PG (26-34); Mean Corpuscular Volume 81.7 fL (80-100); Monocytes Absolute Auto 300 /uL (0-900); Monocytes Percent Auto 5.2 % (3-14); Neutrophils Absolute Auto 4800 /uL (1500-7000); Neutrophils Percent Auto 75.9 % (50-75); Platelet Count 254 X10^3/uL (150-400); Red Cell Distribution Width 14.4 % (11.6-14.8); White Blood Cell Count 6.3 X10^3/uL (4.5-11.0)
[2022-08-23 03:39] LABS: BUN Creatinine Ratio 16.5 (6-22); Blood Urea Nitrogen 13 mg/dL (9-20); Calcium 9.6 mg/dL (8.4-10.2); Carbon Dioxide 21 mmol/L (22-32); Chloride 105 mmol/L (98-107); Estimated Glomerular Filt Rate > 60 mL/min (>60); Glucose 109 mg/dL (80-110); HEMOLYSIS < 15 (0-50); Potassium 3.9 mmol/L (3.4-5.1); Sodium 139 mmol/L (137-145)
[2022-08-23] MEDS: MORPHINE 4 MG/ML INJ IV (04:17)
[2022-08-23 04:21] LABS: COVID-19 CEPHEID 4-PLEX PCR Negative (Negative); Influenza A - CEPHEID Flu A NEGATIVE (NEGATIVE); Influenza B - CEPHEID Flu B NEGATIVE (NEGATIVE); Respiratory Syncytial Virus Negative (Negative)
== END 2022-08-23 05:11 | disposition home or self-care (01) ==
PROVIDERS: Emergency Provider Emergency Medicine; Family Provider Family Medicine; PCP Internal Medicine
DX: R51.9 Headache, unspecified (principal); Z20.822 Contact with and (suspected) exposure to COVID-19; M54.50 Low back pain, unspecified
CPT/HCPCS: 0241U; 36415; 80048; 85025; 96361; 96372; 96374; 96375; 99283; 99284; J1200; J1885; J2270; J2765

== ENCOUNTER 2022-10-14 22:13 | Emergency (ER) | payer OTHER, MEDICAID, SELFPAY ==
[2022-10-14 22:17] VITALS: BP 149/88; PULSE 105; RESP 20; TEMP 36.6; O2SAT 98; BMI 29.8
== END 2022-10-14 23:59 | disposition left against medical advice (07) ==
PROVIDERS: Emergency Provider Emergency Medicine; Family Provider Family Medicine; PCP Internal Medicine
CPT/HCPCS: 99281

== ENCOUNTER 2023-07-17 11:42 | Emergency (ER) | payer MEDICAID, SELFPAY ==
[2023-07-17 11:43] VITALS: BP 177/107; PULSE 88; RESP 20; O2SAT 100; BMI 34.4
--- NOTE | 2023-07-17 11:47 | DI.RAD.S_ITS ---
PROCEDURE: XR CHEST 1V INDICATIONS: Short of breath TECHNIQUE: One view of the chest was acquired. COMPARISON: None. FINDINGS: Surgical changes and devices: Lower cervical spine fixation hardware is partially seen. Lungs and pleura: On this supine examination, no large pneumothorax or large pleural effusions are seen. No focal areas of lung consolidation are seen. Low lung volumes are noted. This causes a crowded appearance to the lung markings and limits evaluation. Mediastinum: Mediastinal contours appear normal. Heart size is normal. Bones and chest wall: No suspicious bony lesions. The visualized growth plates have an unremarkable appearance. Overlying soft tissues appear unremarkable. IMPRESSION: Limited portable chest examination, without a significant cardiopulmonary abnormality identified. Dictated by: Ashutosh Duke M.D. on 07/17/2023 at 11:14 Approved by: Ashutosh Duke M.D. on 07/17/2023 at 11:15
[2023-07-17 11:56] VITALS: PULSE 82; RESP 22; O2SAT 99
--- NOTE | 2023-07-17 11:57 | ED_ITS ---
HPI - General Adult General Chief complaint: Toxicology Problem Stated complaint: overdose used narcan Time Seen by Provider: 07/17/23 11:44 Source: patient Mode of arrival: Ambulatory History of Present Illness HPI narrative: Patient is a 63-year-old male who is ambulatory who arrives in the emergency department initially stating that he was having a heart attack. He was immediately brought back to the room. It was then revealed that just prior to arrival here in the emergency department he administered himself intranasal Narcan. Patient does use methadone. He states he takes 60 mg of methadone. His last dose was last evening. He states this morning he was at home. He says he generally did not feel very well. Was difficult for him to describe this more than that. He was somewhat nauseous. He looked in the mirror. He would pinpoint pupils. He was told that if he had pinpoint pupils that potentially mentions that he is overdosed so he administered himself 1 dose of intranasal Narcan. Patient now has ?pain all over? reports pain in his abdomen. Pain in his groin. Pain in his buttocks. Pain in his legs. He is nauseous. Occasionally stating that he is having chest pain and that other times stating that he isn't. No shortness of breath. Patient is loud. Is yawning. Is thrashing around in the bed. Despite all this is apologizing stating that he is trying to control his actions but just can not. Related Data Home Medications Medication Instructions Recorded Confirmed pool therapy See Rx Instructions .Route .COMPLEX 05/23/23 06/09/23 docusate sodium 100 mg tablet 100 mg PO BID 06/23/23 06/23/23 hydrocodone 10 mg-acetaminophen 1 tab PO BEDTIME PRN 06/23/23 06/23/23 325 mg tablet Previous Rx's Medication Instructions Recorded Disabled Parking Permit #1 ea 02/10/21 carisoprodol 350 mg tablet 350 mg PO QID PRN muscle pain #360 05/27/22 tabs mupirocin 2 % topical ointment See Rx Instructions .Route 06/25/22 .COMPLEX #22 grams diazepam 5 mg tablet 5 mg PO ONCE PRN anxiety #4 tabs 07/30/22 boohzaslrwuth-[id number] 5 2 tab PO Q4-6H PRN cold symptoms 11/13/23 mg-10 mg-325 mg tablet (Tylenol #90 tabs Cold Max Day) buprenorphine 8 mg-naloxone 2 mg 1 film buccal TID #90 ea 06/09/23 sublingual film (Suboxone) Allergies Allergy/AdvReac Type Severity Reaction Status Date / Time eszopiclone [From Lunesta] AdvReac Severe sedated Verified 06/23/23 08:04 morphine AdvReac Severe Nightmare Verified 06/23/23 08:04 NSAIDS (Non-Steroidal AdvReac Unknown Gastrointestinal Verified 06/23/23 08:04 Anti-Inflamma Upset zolpidem [From Ambien] AdvReac sleep Verified 06/23/23 08:04 walking and eating Review of Systems Constitutional Constitutional: Reports system reviewed and no additional complaints, except as documented Cardiovascular Cardiovascular: Reports system reviewed and no additional complaints, except as documented Respiratory Respiratory: Reports system reviewed and no additional complaints, except as documented Gastrointestinal Gastrointestinal: Reports system reviewed and no additional complaints, except as documented Integumentary/Breasts Skin/Breast: Reports system reviewed and no additional complaints, except as documented Neurologic Neurologic: Reports system reviewed and no additional complaints, except as documented Hematologic/Lymphatic On Anticoagulants: No Patient History Medical History Overweight Mixed hyperlipidemia Abnormal CT of the abdomen Chronic, continuous use of opioids Chronic low back pain Essential hypertension Facet arthropathy, lumbar Strain of left upper arm Migraines (~1999) Fractures (~2004) Cervical spine disease (~1999) Tinnitus (~2000) Hearing loss (~2000) Hemorrhoid (~1969) Neck pain (Unknown) Chronic back pain (1993) Foot pain (1993) Ankle pain (1993) Surgical History History of surgery on arm (12/2015) Status post appendectomy Status post discectomy Status post discectomy Family History Mother Age: 83 Diabetes mellitus Father No problems noted. 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 Smoking Status: Never smoker alcohol intake: never Smoking Status: Never smoker alcohol intake frequency: holidays/special occasions only Substance Use Type: does not use Exam Initial Vital Signs Initial Vital Signs: Vital Signs Pulse Rate 88 07/17/23 11:43 Respiratory Rate 20 07/17/23 11:43 Blood Pressure 177/107 H 07/17/23 11:43 Pulse Oximetry 100 07/17/23 11:43 Oxygen Delivery Method Room Air 07/17/23 11:43 Const General: acute distress, diaphoretic, disheveled and No ill appearing HENMT Head: normal to inspection and normocephalic Resp Effort & Inspection: normal respiratory effort Auscultation: clear to auscultation bilaterally Cardio Rate: regular rate Rhythm: regular rhythm GI Inspection: non-distended Palpation: tender (Diffuse) External: normal external exam and uncircumcised Testes: normal Skin General: no rashes or lesions noted Neuro General: patient alert, patient awake, gait normal and moves all extremities Speech: speech normal Extrem Other: No gross deformities Course Orders Ordered: ED Orders 07/17/23 11:47 XR chest 1V Stat 07/17/23 11:52 EKG-12 Lead Stat 07/17/23 11:55 Complete Blood Count AUTO DIFF Stat Comprehensive Metabolic Panel Stat Ethanol (ETOH) Stat Lipase Stat NT-proBNP (BNP-Adult 18+) Stat Troponin & CK Cardiac Panel Stat 07/17/23 12:37 Covid-19 + FLU A/B + RSV - PCR Stat Discontinued Medications Sodium Chloride (Normal Saline 0.9%) 1,000 mls @ 1,000 mls/hr IV BOLUS ONE Stop: 07/17/23 12:43 Last Infusion: 07/17/23 13:29 Dose: Infused Documented By: Admin: 07/17/23 12:09 Dose: 1,000 mls/hr Documented By: NATHAN Methadone HCl (Methadone 5 Mg Tablet) 60 mg PO NOW ONE Stop: 07/17/23 12:00 Methadone HCl (Methadone Intensol 10 Mg/Ml Oral.Conc) 60 mg PO NOW ONE Stop: 07/17/23 12:01 Last Admin: 07/17/23 12:24 Dose: 60 mg Documented By: NATHAN Vital Signs Vital signs: Vital Signs - 8 hr 07/17/23 11:43 07/17/23 11:56 07/17/23 12:00 Pulse Rate 88 82 86 Respiratory Rate 20 22 20 Blood Pressure 177/107 H Pulse Oximetry 100 99 100 Oxygen Delivery Method Room Air 07/17/23 12:30 07/17/23 12:38 07/17/23 12:38 Pulse Rate 79 80 Respiratory Rate 14 15 Blood Pressure 146/64 H Pulse Oximetry 98 Oxygen Delivery Method Medical Decision Making Lab Data Lab results reviewed: Yes I reviewed the patient's lab results. 07/17/23 11:55 07/17/23 11:55 Labs: Lab Results 07/17/23 07/17/23 Range/Units 11:55 12:37 WBC 6.8 (4.5-11.0) X10^3/uL RBC 4.89 (4.5-5.9) X10^6/uL Hgb 13.8 (13.5-17.5) g/dL Hct 41.0 (41-53) % MCV 83.8 (80-100) fL MCH 28.1 (26-34) PG MCHC 33.6 (30-36) % RDW 13.3 (11.6-14.8) % Plt Count 215 (150-400) X10^3/uL Neut % (Auto) 58.4 (50-75) % Lymph % (Auto) 29.6 (25-40) % [place] % (Auto) 9.1 (3-14) % Eos % (Auto) 2.3 (2-4) % Baso % (Auto) 0.6 (0-2) % Neut # (Auto) 4000 (2493-7741) /uL Lymph # (Auto) 2000 (0008-6163) /uL [place] # (Auto) 600 (0-900) /uL Eos # (Auto) 200 (0-450) /uL Baso # (Auto) 0 (0-100) /uL Sodium 138 (137-145) mmol/L Potassium 3.9 (3.4-5.1) mmol/L Chloride 100 (98-107) mmol/L Carbon Dioxide 26 (22-32) mmol/L BUN 22 H (9-20) mg/dL Creatinine 0.77 (0.66-1.25) mg/dL Estimated GFR > 60 (>60) mL/min BUN/Creatinine Ratio 28.6 H (6-22) Glucose 99 (80-110) mg/dL Calcium 9.9 (8.4-10.2) mg/dL Total Bilirubin 0.6 (0.2-1.3) mg/dL AST 25 (17-59) IU/L ALT 22 (<50) IU/L Alkaline Phosphatase 87 (38-126) U/L Total Creatine Kinase 106 (55-170) U/L Troponin I < 0.012 (0.01-0.034) ng/mL NT-Pro-B Natriuret Pep 73 (<125) pg/mL Total Protein 8.1 (6.3-8.2) g/dL Albumin 4.7 (3.5-5.0) g/dL Globulin 3.4 (1.7-4.1) g/dL Albumin/Globulin Ratio 1.4 (1.0-2.8) Lipase 45 (23-300) U/L Ethyl Alcohol < 10 ( - 10) mg/dL SARS-CoV-2 (PCR) Negative (Negative) Influenza A (RT-PCR) Flu a negative (NEGATIVE) Influenza B (RT-PCR) Flu b negative (NEGATIVE) RSV (PCR) Negative (Negative) Imaging Data Chest x-ray: Radiologist's Impression: PROCEDURE: XR CHEST 1V INDICATIONS: Short of breath TECHNIQUE: One view of the chest was acquired. COMPARISON: None. FINDINGS: Surgical changes and devices: Lower cervical spine fixation hardware is partially seen. Lungs and pleura: On this supine examination, no large pneumothorax or large pleural effusions are seen. No focal areas of lung consolidation are seen. Low lung volumes are noted. This causes a crowded appearance to the lung markings and limits evaluation. Mediastinum: Mediastinal contours appear normal. Heart size is normal. Bones and chest wall: No suspicious bony lesions. The visualized growth plates have an unremarkable appearance. Overlying soft tissues appear unremarkable. IMPRESSION: Limited portable chest examination, without a significant cardiopulmonary abnormality identified. ECG Data Attestation: I personally reviewed and interpreted this ECG as follows: Interpretation: Sinus rhythm Ventricular rate is 78 Normal axis Normal QRS Normal QTC No ST T wave changes MDM Narrative Medical decision making narrative: I suspect based on his presentation that after giving himself a Narcan this morning he sent himself into acute withdrawal. After receiving a dose of methadone here in the ER he was able to sleep. He woke up and stated that he felt much better. He was observed for just over 2 hours. No respiratory distress. I suspect that the effects of the Narcan or decreasing and his methadone will start to work. Had a long discussion with him regarding Narcan and his medications. He states that he does not take more methadone than what he is prescribed. He denies taking any other recreational substances. He sounds very motivated to continue with the methadone program. He was just unsure as to how to use the Narcan which I educated him on. He does not need a refill. He states he is plenty of it at home. He was given return precautions. He expressed understanding and agreement. Discharge Plan Departure Patient Disposition: Home Clinical Impression: Opioid withdrawal Instructions: Naloxone Nasal [place], Naloxone for Opiate Overdose - WADO Activity Restrictions/Additional Instructions: It is important that you continue to take the methadone as directed and avoid taking any other illicit substances along with this. Keep all of your scheduled medical appointments. Return to the emergency department for new or worsening symptoms. Prescriptions: No Action pool therapy See Rx Instructions .ROUTE .COMPLEX Rx Instructions: daily for chronic low back pain (ICD10 M54.5) Tylenol Cold Max Day 5-10-325 mg tablet 2 tab PO Q4-6H PRN (Reason: cold symptoms) Qty: 90 3RF buprenorphine-naloxone [Suboxone] 8-2 mg film 1 film buccal TID Qty: 90 0RF Rx Instructions: place 1 film on inside of (each) cheek hydrocodone-acetaminophen 10-325 mg tablet 1 tab PO BEDTIME PRN Patient Comments: 2 in the morning, 2 in the afternoon, 2 before bed docusate sodium 100 mg tablet 100 mg PO BID mupirocin 2 % ointment See Rx Instructions .ROUTE .COMPLEX Qty: 22 2RF Dose Instruction: apply topically to affected area(s) twice daily Rx Instructions: apply topically to affected area(s) twice daily diazepam 5 mg tablet 5 mg PO ONCE PRN (Reason: anxiety) Qty: 4 1RF Rx Instructions: to use flying trips (DME) Disabled Parking Permit See Rx Instructions .ROUTE .MEDSUPPLY Qty: 1 0RF Rx Instructions: Valid for 5 years carisoprodol 350 mg tablet 350 mg PO QID PRN (Reason: muscle pain) Qty: 360 1RF Referrals: Miscellaneous,Doctor, MD [Primary Care Provider] - Stand Alone Forms: Patient Portal/API
[2023-07-17 12:00] VITALS: PULSE 86; RESP 20; O2SAT 100
[2023-07-17 12:08] LABS: Add Manual Diff / Slide Review NO; Basophils Absolute Auto 0 /uL (0-100); Basophils Percent Auto 0.6 % (0-2); Eosinophils Absolute Auto 200 /uL (0-450); Eosinophils Percent Auto 2.3 % (2-4); Hemoglobin 13.8 g/dL (13.5-17.5); Lymphocytes Absolute Auto 2000 /uL (1100-4500); Lymphocytes Percent Auto 29.6 % (25-40); Mean Corpuscular HGB Conc 33.6 % (30-36); Mean Corpuscular Hemoglobin 28.1 PG (26-34); Mean Corpuscular Volume 83.8 fL (80-100); Monocytes Absolute Auto 600 /uL (0-900); Monocytes Percent Auto 9.1 % (3-14); Neutrophils Absolute Auto 4000 /uL (1500-7000); Neutrophils Percent Auto 58.4 % (50-75); Platelet Count 215 X10^3/uL (150-400); Red Blood Cell Count 4.89 X10^6/uL (4.5-5.9); Red Cell Distribution Width 13.3 % (11.6-14.8); White Blood Cell Count 6.8 X10^3/uL (4.5-11.0)
[2023-07-17] MEDS: SODIUM CHLORIDE 0.9% 1,000 ML 1000 ML IV (12:09)
[2023-07-17 12:21] LABS: Creatine Kinase 106 U/L (55-170)
[2023-07-17 12:23] LABS: Alanine Aminotransferase 22 IU/L (<50); Albumin 4.7 g/dL (3.5-5.0); Albumin Globulin Ratio 1.4 (1.0-2.8); Alkaline Phosphatase 87 U/L (38-126); Aspartate Aminotransferase 25 IU/L (17-59); BUN Creatinine Ratio 28.6 (6-22); Bilirubin Total 0.6 mg/dL (0.2-1.3); Blood Urea Nitrogen 22 mg/dL (9-20); Calcium 9.9 mg/dL (8.4-10.2); Carbon Dioxide 26 mmol/L (22-32); Chloride 100 mmol/L (98-107); Estimated Glomerular Filt Rate > 60 mL/min (>60); Ethanol (ETOH) < 10 mg/dL; Globulin 3.4 g/dL (1.7-4.1); Glucose 99 mg/dL (80-110); HEMOLYSIS < 15 (0-50); Lipase 45 U/L (23-300); Potassium 3.9 mmol/L (3.4-5.1); Sodium 138 mmol/L (137-145); Total Protein 8.1 g/dL (6.3-8.2)
[2023-07-17] MEDS: METHADONE INTENSOL 10 MG/ML ORAL.CONC 60 MG PO (12:24)
[2023-07-17 12:30] VITALS: PULSE 79; RESP 14
[2023-07-17 12:34] LABS: NT-proBNP (BNP-Adult 18+) 73 pg/mL (<125); Troponin I < 0.012 ng/mL (0.01-0.034)
[2023-07-17 12:38] VITALS: BP 146/64; PULSE 80; RESP 15; O2SAT 98
[2023-07-17 13:41] LABS: Influenza A - CEPHEID Flu A NEGATIVE (NEGATIVE); Influenza B - CEPHEID Flu B NEGATIVE (NEGATIVE); Respiratory Syncytial Virus Negative (Negative)
[2023-07-17 13:48] LABS: COVID-19 CEPHEID 4-PLEX PCR Negative (Negative)
[2023-07-17 14:28] VITALS: BP 159/83; PULSE 77; RESP 16; O2SAT 96
== END 2023-07-17 14:30 | disposition home or self-care (01) ==
PROVIDERS: Emergency Provider Emergency Medicine; Family Provider Family Medicine
DX: F11.23 Opioid dependence with withdrawal (principal); R07.9 Chest pain, unspecified
CPT/HCPCS: 0241U; 36415; 71045; 80053; 80320; 82550; 83690; 83880; 84484; 85025; 93005; 93010; 99284